=== PATIENT | female | born 1965 | race Two or more races ===

== ENCOUNTER 2019-06-15 09:23 | Inpatient (IN) | payer BC, MEDICARE ==
[~2019-06-15] VITALS: Ht 152.4 cm; Wt 60.5 kg
[~2019-06-15 09:23] MED LIST: CARV12.544 PO; LEVO150T10 PO; LISI40TA PO
[2019-06-15] MEDS ORDERED: MORPHINE SULFATE 4 MG/ML SYR/VIAL IV ONE (10:00)
[2019-06-15] MEDS ORDERED: ASPirin 81 mg TAB PO ONE (10:00)
[2019-06-15] MEDS ORDERED: ONDANSETRON HCL 4 MG/2 ML VIAL IV ONE (10:00)
[2019-06-15 10:06] LABS: Basophils # (auto) 0.1 10 ^3/uL (0-0.2); Basophils % (auto) 1.1 % (0.0-2.0); Eosinophils # (auto) 0.1 10 ^3/uL (0-0.8); Eosinophils % (auto) 0.7 % (0.0-7.0); Hematocrit 49.2 % (36.0-46.0); Lymphocytes # (auto) 1.2 10 ^3/uL (0.4-5.4); Lymphocytes % (auto) 15.2 % (10.0-50.0); Mean Corpuscular Hemoglobin 28.1 pg (28.0-32.0); Mean Corpuscular Hgb Conc. 32.5 g/dL (32.0-36.0); Mean Corpuscular Volume 86.2 fL (80.0-100.0); Monocytes # (auto) 0.5 10 ^3/uL (0-1.3); Monocytes % (auto) 5.8 % (0.0-12.0); Neutrophils # (auto) 6.1 10 ^3/uL (1.6-8.6); Neutrophils % (auto) 77.2 % (37.0-80.0); Nucleated Red Blood Cells % 0.2 %; Platelet Count (auto) 267 10^3/uL (140-450); Red Cell Distribution Width 14.2 % (11.8-14.3)
[2019-06-15 10:21] LABS: Albumin 3.9 g/dL (3.4-5.0); Anion Gap 6 (5-15); Blood Urea Nitrogen 9 mg/dL (7-18); Calcium 10.1 mg/dL (8.5-10.1); Carbon Dioxide 25 mmol/L (21-32); Chloride 110 mmol/L (98-107); Glucose 96 mg/dL (74-106); Potassium 3.9 mmol/L (3.5-5.1); Sodium 141 mmol/L (136-145)
[2019-06-15 10:26] LABS: Alanine Aminotransferase 23 U/L (13-56); Alkaline Phosphatase 103 U/L (45-117); Aspartate Aminotransferase 23 U/L (15-37); BUN/Creatinine Ratio 6.3; Bilirubin, Total 0.3 mg/dL (0.2-1.0); GFR African American 50 mL/min; GFR Non-African American 41 mL/min; Total Protein 8.4 g/dL (6.4-8.2)
[2019-06-15 10:41] LABS: Urine Bacteria NONE SEEN /hpf (None Seen); Urine Blood Negative /uL (Negative); Urine Specific Gravity 1.003 (1.001-1.035); Urine WBC <1 /hpf (0 - 5)
[2019-06-15] MEDS ORDERED: LISINOPRIL 10 MG TAB PO SCH (11:15)
[2019-06-15] MEDS ORDERED: ACETAMINOPHEN 500 MG TAB PO PRN (11:15)
[2019-06-15] MEDS ORDERED: METOPROLOL TARTRATE 25 MG TAB PO SCH (11:15)
[2019-06-15] MEDS: HYDROcodone-ACET 5/325MG TAB PO PRN (11:53)
[2019-06-15] MEDS: NITROGLYCERIN 0.4MG/HR TOPICAL PATCH TD SCH (11:55)
[2019-06-15] MEDS: MORPHINE SULF INJ 2 MG/ML SYRINGE 1ML IV PRN ×3 (12:57→20:38)
[2019-06-15] MEDS: ONDANSETRON HCL 4 MG/2 ML VIAL IV PRN ×2 (12:58→15:59)
[2019-06-15] MEDS: hydrALAZINE HCL 20 MG/ML VL IV PRN (12:58)
--- NOTE | 2019-06-15 13:50 | NUR ---
RECEIVED PATIENT TO THE FLOOR AWAKE ALERT AND ORIENTED. INSTRUCTED THE PATIENT ON THE PLAN OF CARE AND TO CALL NEEDED. BED LOCKED IN LOWEST POSITION WITH TWO SIDE RAILS UP AND CALL LIGHT IN REACH.
[2019-06-15] MEDS ORDERED: NICOTINE 7MG/24HR TOPICAL PATCH TD ONE (14:30)
[2019-06-15] MEDS ORDERED: RANOLAZINE ER 500 MG TAB PO ONE (14:30)
--- NOTE | 2019-06-15 14:50 | NUR ---
SPOKE TO JUSTINA COX AT NURSING STATION REGARDING PATIENT HAVING CHEST DISCOMFORT. PER JUSTINA SHE WILL ROUND ON PATIENT.
[2019-06-15] MEDS ORDERED: diphenhdrAMINE HCL 50 MG/1 ML VL IV ONE (16:45)
[2019-06-15] MEDS ORDERED: KETOROLAC TROMETH 30 MG/ML 1ML VIAL IV ONE (16:45)
[2019-06-15 16:51] VITALS: BP 110/67
--- NOTE | 2019-06-15 17:00 | NUR ---
PATIENT COMPLAINING OF ITCHY ON PALMS, BENADRYL GIVEN ORDERED.
--- NOTE | 2019-06-15 17:00 | NUR ---
DR RODRIGEZ ROUNDING ON PATIENT.
[2019-06-15 18:00] VITALS: BP 110/63
--- NOTE | 2019-06-15 19:30 | NUR ---
Opening Shift Note Assumed care of patient, awake and alert. No S/S of distress or SOB. POC discussed and questions answered. Patient requesting "something to help her relax" will call for orders. Bed is locked in lowest position with side rails up x2 for safety. Call light is within reach and patient encouraged to call for assistance PRN, will continue to monitor for changes Q1hr and PRN.
--- NOTE | 2019-06-15 20:40 | NUR ---
NEW ORDERS RECEIVED 0.5MG XANAX ORDERED. WILL CARRY OUT ORDER AND CONTINUE TO MONITOR.
[2019-06-15] MEDS ORDERED: ALPRAZolam 0.5 MG TAB PO ONE (20:45)
[2019-06-15 21:19] VITALS: BP 102/48
[2019-06-15] MEDS: ATORVASTATIN 20 MG TAB PO SCH (21:22)
[2019-06-15] MEDS: RANOLAZINE ER 500 MG TAB PO SCH (21:22)
[2019-06-15] MEDS: DOCUSATE SOD 100 MG CAP PO SCH (21:22)
[2019-06-15] MEDS: METOPROLOL TARTRATE 50 MG TAB PO SCH (21:23)
[2019-06-16] MEDS ORDERED: SODIUM CHLORIDE 0.9% 1,000 ML IV SCH (00:01)
[2019-06-16 05:32] VITALS: BP 103/61
[2019-06-16 06:18] LABS: Basophils # (auto) 0.1 10 ^3/uL (0-0.2); Basophils % (auto) 1.1 % (0.0-2.0); Eosinophils # (auto) 0.1 10 ^3/uL (0-0.8); Eosinophils % (auto) 1.3 % (0.0-7.0); Hematocrit 43.4 % (36.0-46.0); Hemoglobin 14.3 g/dL (12.2-16.2); Lymphocytes # (auto) 2.1 10 ^3/uL (0.4-5.4); Lymphocytes % (auto) 22.7 % (10.0-50.0); Mean Corpuscular Hemoglobin 28.4 pg (28.0-32.0); Mean Corpuscular Hgb Conc. 32.9 g/dL (32.0-36.0); Mean Corpuscular Volume 86.3 fL (80.0-100.0); Monocytes # (auto) 0.8 10 ^3/uL (0-1.3); Neutrophils % (auto) 65.9 % (37.0-80.0); Nucleated Red Blood Cells % 0.1 %; Platelet Count (auto) 212 10^3/uL (140-450); Red Blood Cells 5.03 10^6/uL (4.0-5.20); Red Cell Distribution Width 14.2 % (11.8-14.3); White Blood Cell 9.1 10^3/uL (4.4-10.8)
[2019-06-16 06:32] LABS: INR 1.01 (0.9-1.15); Partial Thromboplastin Time 27.7 sec (23.64-32.05)
[2019-06-16 06:38] LABS: BUN/Creatinine Ratio 11.4; Calcium 9.2 mg/dL (8.5-10.1); Potassium 4.5 mmol/L (3.5-5.1)
--- NOTE | 2019-06-16 07:10 | NUR ---
Opening Shift Note Assumed care of patient, resting in bed with eyes closed. No S/S of distress/SOB or pain. Bed is set in lowest locked position with side rails up x 2 for safety and call light is within reach, will continue to monitor for changes Q1hr and PRN.
[2019-06-16] MEDS ORDERED: IODIXANOL 320MG/ML 100ML BTL IV ONE (07:50)
[2019-06-16] MEDS: MORPHINE SULF INJ 2 MG/ML SYRINGE 1ML IV PRN ×2 (08:17→13:08)
--- NOTE | 2019-06-16 08:17 | NUR ---
Pain assessment Patient states pain is a level 10/10 on a scale of 1-10. Pain is located in the left shoulder and upper back region. Per MD orders, administered morphine 1 mg. Will continue to monitor patient.
[2019-06-16] MEDS ORDERED: IOHEXOL 350 MG/ML 100ML IJ ONE (08:24)
[2019-06-16] MEDS ORDERED: LIDOCAINE 2%HCL (LOCAL ANESTH.) INJ 20ML MDV ONE ×2 (08:25→12:03)
--- NOTE | 2019-06-16 08:28 | NUR ---
Patient off unit Taken down to label rewinder for procedure. IV flushed prior and is intact/patent. No distress noted upon departure. Care endorsed to CATHY Fowler.
[2019-06-16 08:30] VITALS: BP 145/88
--- NOTE | 2019-06-16 08:47 | NUR ---
Pain re-assessment Patient reports pain is a 5/10 on a scale of 1-10. States she is comfortable at this time.
[2019-06-16 09:00] VITALS: BP 117/85
[2019-06-16] MEDS: LISINOPRIL 20 MG TAB PO SCH (09:56)
[2019-06-16] MEDS: ASPirin-EC 81 mg tab PO SCH (09:56)
[2019-06-16] MEDS: RANOLAZINE ER 500 MG TAB PO SCH ×2 (09:56→21:43)
[2019-06-16] MEDS: DOCUSATE SOD 100 MG CAP PO SCH ×2 (09:57→21:42)
[2019-06-16] MEDS: METOPROLOL TARTRATE 50 MG TAB PO SCH ×2 (09:57→21:43)
[2019-06-16] MEDS: FAMOTIDINE 20 MG TAB PO SCH (09:57)
[2019-06-16] MEDS: NICOTINE 7MG/24HR TOPICAL PATCH TD SCH (10:01)
[2019-06-16] MEDS ORDERED: ANGIOMAX 250 MG VIAL IV ONE (12:02)
[2019-06-16] MEDS ORDERED: fentaNYL CITRATE 100 MCG/2 ML VL ONE (12:02)
[2019-06-16] MEDS ORDERED: SODIUM CHL 0.9% 0 ML ONE (12:03)
[2019-06-16] MEDS ORDERED: MIDAZOLAM HCL 1MG/1ML-2 ML VIAL ONE (12:03)
[2019-06-16] MEDS ORDERED: SODIUM CHLORIDE 0.9% 250 ML IV ONE (12:45)
[2019-06-16] MEDS: NITROGLYCERIN 0.4MG/HR TOPICAL PATCH TD SCH (12:59)
[2019-06-16] MEDS: SODIUM CHLORIDE 0.9% 1,000 ML IV SCH ×2 (13:12→21:44)
[2019-06-16] MEDS ORDERED: LEVOTHYROXINE SODIUM 50 MCG TAB PO ONE (13:45)
[2019-06-16 13:54] LABS: Cholesterol 244 mg/dL (< 200)
[2019-06-16 13:56] LABS: HDL Cholesterol 61 mg/dL (40-59); LDL Cholesterol 142 mg/dL (< 100); Triglycerides 271 mg/dL (< 150)
[2019-06-16] MEDS: HYDROcodone-ACET 5/325MG TAB PO PRN (15:17)
[2019-06-16 16:39] VITALS: BP 150/86
[2019-06-16] MEDS ORDERED: KETOROLAC TROMETH 15 mg/ml 1ML VL IV ONE (17:00)
[2019-06-16] MEDS ORDERED: diphenhdrAMINE HCL 50 MG/1 ML VL IM ONE (17:00)
[2019-06-16] MEDS ORDERED: KETOROLAC TROMETH 30 MG/ML 1ML VIAL IV ONE (17:45)
[2019-06-16] MEDS ORDERED: diphenhdrAMINE HCL 50 MG/1 ML VL IV ONE (17:45)
[2019-06-16] MEDS: ONDANSETRON HCL 4 MG/2 ML VIAL IV PRN (18:41)
--- NOTE | 2019-06-16 19:15 | NUR ---
Care endorsed to NOC RN.
--- NOTE | 2019-06-16 19:40 | NUR ---
Opening Shift Note Assumed care of patient, awake and alert. No S/S of distress/SOB or pain. Instructed on POC and to call for assist PRN. Bed in lowest locked position, call light within reach, side rails up x2, fall precautions in place. Will continue to monitor for changes Q1hr and PRN.
[2019-06-16] MEDS: MORPHINE SULFATE 4 MG/ML SYR/VIAL IV PRN (20:01)
[2019-06-16] MEDS: ATORVASTATIN 20 MG TAB PO SCH (21:42)
[2019-06-16 22:00] VITALS: BP 140/81
[2019-06-17] MEDS: MORPHINE SULFATE 4 MG/ML SYR/VIAL IV PRN ×3 (03:51→20:50)
[2019-06-17 05:00] VITALS: BP 160/75
[2019-06-17] MEDS: hydrALAZINE HCL 20 MG/ML VL IV PRN ×2 (05:17→18:29)
[2019-06-17 05:43] LABS: Basophils # (auto) 0.1 10 ^3/uL (0-0.2); Basophils % (auto) 1.1 % (0.0-2.0); Eosinophils # (auto) 0.1 10 ^3/uL (0-0.8); Eosinophils % (auto) 1.5 % (0.0-7.0); Hematocrit 40.2 % (36.0-46.0); Hemoglobin 13.4 g/dL (12.2-16.2); Lymphocytes # (auto) 1.4 10 ^3/uL (0.4-5.4); Lymphocytes % (auto) 20.2 % (10.0-50.0); Mean Corpuscular Hemoglobin 29.2 pg (28.0-32.0); Mean Corpuscular Hgb Conc. 33.4 g/dL (32.0-36.0); Mean Corpuscular Volume 87.5 fL (80.0-100.0); Monocytes # (auto) 0.7 10 ^3/uL (0-1.3); Monocytes % (auto) 10.2 % (0.0-12.0); Neutrophils # (auto) 4.6 10 ^3/uL (1.6-8.6); Platelet Count (auto) 187 10^3/uL (140-450); Red Blood Cells 4.59 10^6/uL (4.0-5.20); Red Cell Distribution Width 14.5 % (11.8-14.3); White Blood Cell 6.9 10^3/uL (4.4-10.8)
[2019-06-17 06:00] LABS: INR 0.96 (0.9-1.15); Partial Thromboplastin Time 27.5 sec (23.64-32.05)
[2019-06-17 06:14] LABS: BUN/Creatinine Ratio 13.5; Calcium 8.8 mg/dL (8.5-10.1); Potassium 4.6 mmol/L (3.5-5.1)
[2019-06-17] MEDS: LEVOTHYROXINE SODIUM 50 MCG TAB PO SCH (07:00)
[2019-06-17 08:30] VITALS: BP 152/88
[2019-06-17] MEDS: MORPHINE SULF INJ 2 MG/ML SYRINGE 1ML IV PRN ×2 (08:51→18:54)
--- NOTE | 2019-06-17 08:51 | NUR ---
CHEST PAIN PATIENT COMPLAINING OF CHEST PAIN/ HEAD PAIN. REFUSING NITRO SUBLINGUAL, ALREADY HAS NITRO PATCH TO RIGHT CHEST ON. REFUSING EKG AT THIS TIME, REQUESTING MORPHINE. MORPHINE 2MG IV GIVEN, PAIN SCALE OF 10/10. WILL CONTINUE TO MONITOR.
[2019-06-17] MEDS: SODIUM CHLORIDE 0.9% 1,000 ML IV SCH ×2 (09:30→20:00)
[2019-06-17] MEDS: RANOLAZINE ER 500 MG TAB PO SCH ×2 (09:57→21:35)
[2019-06-17] MEDS: FAMOTIDINE 20 MG TAB PO SCH (09:57)
[2019-06-17] MEDS: LISINOPRIL 20 MG TAB PO SCH (09:58)
[2019-06-17] MEDS: DOCUSATE SOD 100 MG CAP PO SCH ×2 (09:59→21:34)
[2019-06-17] MEDS: METOPROLOL TARTRATE 50 MG TAB PO SCH ×2 (09:59→21:35)
[2019-06-17] MEDS: ASPirin-EC 81 mg tab PO SCH ×2 (10:00→11:06)
[2019-06-17] MEDS: NICOTINE 7MG/24HR TOPICAL PATCH TD SCH (10:07)
[2019-06-17] MEDS: NITROGLYCERIN 0.4MG/HR TOPICAL PATCH TD SCH (10:08)
[2019-06-17 12:30] VITALS: BP 160/95
--- NOTE | 2019-06-17 14:25 | NUR ---
Nutrition Assessment Notes Please refer to link for full assessment notes. Est energy needs: 6855-9643 kcals (20-23 kcal/kgBW) Est protein needs: 50-63 gms/day (0.8-1.0 gm/kgBW) Will continue to monitor and reassess prn. Addendum: 06/17/19 at [address] Amended: Links added.
[2019-06-17 16:29] VITALS: BP 157/85
--- NOTE | 2019-06-17 18:54 | NUR ---
CHEST PAIN PATIENT COMPLAINING OF CHEST/ LOWER BACK PAIN 12/25. REFUSING NITRO SUBLINGUAL. NITRO PATCH ON. REFUSING EKG AT THIS TIME, REQUESTING TO HAVE MORPHINE. 2MG OF MORPHINE GIVEN IV. WILL CONTINUE TO MONITOR.
[2019-06-17] MEDS: NITROGLYCERIN 0.4 MG SL TAB SL PRN ×3 (19:28→19:39)
--- NOTE | 2019-06-17 19:30 | NUR ---
Opening Shift Note Assumed care of patient, awake and alert. Patient continues to complain of chest pain 10/10, will medicate as directed, see eMAR. Instructed on POC and to call for assist PRN. Bed in lowest locked position, call light within reach, side rails up x2. Will continue to monitor for changes Q1hr and PRN.
--- NOTE | 2019-06-17 20:00 | NUR ---
Chest pain Upon assessment, patient continue to complain of 10/10 chest pain radiating to back and left arm. Placed patient on NC 2L. Educated patient about nitro sublingual. Patient agreed to take medication. Nitro was given x3, see eMAR. Patient tolerated medication well. VS within normal limits. Patient states chest pain is tolerable and is decreased to 7/10. Per patient, would like to wait until pain medication is due. Will continue to monitor.
[2019-06-17] MEDS: ATORVASTATIN 20 MG TAB PO SCH (21:34)
[2019-06-17 21:56] VITALS: BP 152/81
[2019-06-18 05:00] VITALS: BP 150/77
[2019-06-18] MEDS: SODIUM CHLORIDE 0.9% 1,000 ML IV SCH ×2 (05:00→15:54)
[2019-06-18 05:50] LABS: Calcium 9.2 mg/dL (8.5-10.1); Potassium 4.5 mmol/L (3.5-5.1)
[2019-06-18 05:56] LABS: BUN/Creatinine Ratio 10.1; Bilirubin, Total 0.4 mg/dL (0.2-1.0); Total Protein 6.5 g/dL (6.4-8.2)
[2019-06-18] MEDS: LEVOTHYROXINE SODIUM 50 MCG TAB PO SCH (06:50)
--- NOTE | 2019-06-18 07:20 | NUR ---
Opening shift note Assumed care of patient. Patient A&Ox4, respirations even and non-labored with no s/s of distress. Patients current pain level 5/10. Patient stated that her pain was tolerable and felt much better than the day before. Discussed POC and lab technician procedure with patient who verbalized understanding. IV flushed, patent, and intact. NS at 100 mL. Bed lowered/locked with 2 side rails up. Call light within reach. Will continue to monitor.
[2019-06-18] MEDS ORDERED: LIDOCAINE 2%HCL (LOCAL ANESTH.) INJ 20ML MDV ONE (07:50)
[2019-06-18] MEDS ORDERED: IODIXANOL 320MG/ML 100ML BTL IV ONE ×2 (07:50→13:13)
--- NOTE | 2019-06-18 08:40 | NUR ---
Patient to greenhouse laborer.
[2019-06-18 09:00] VITALS: BP 175/90
[2019-06-18] MEDS: DOCUSATE SOD 100 MG CAP PO SCH ×2 (09:58→21:54)
[2019-06-18] MEDS: METOPROLOL TARTRATE 50 MG TAB PO SCH ×2 (10:00→21:53)
--- NOTE | 2019-06-18 10:00 | NUR ---
Pain/Patient returned from fence laborer Patient returned from fence laborer as procedure was postponed. Patient c/o 11/25 shoulder pain. Administered 4 mg of morphine per EMAR. Will continue to monitor.
[2019-06-18] MEDS: LISINOPRIL 20 MG TAB PO SCH (10:01)
[2019-06-18] MEDS: RANOLAZINE ER 500 MG TAB PO SCH ×2 (10:01→21:54)
[2019-06-18] MEDS: FAMOTIDINE 20 MG TAB PO SCH (10:02)
[2019-06-18] MEDS: NICOTINE 7MG/24HR TOPICAL PATCH TD SCH (10:03)
[2019-06-18] MEDS: NITROGLYCERIN 0.4MG/HR TOPICAL PATCH TD SCH (10:03)
[2019-06-18] MEDS: MORPHINE SULFATE 4 MG/ML SYR/VIAL IV PRN ×3 (10:04→23:01)
--- NOTE | 2019-06-18 10:30 | NUR ---
DOCTOR OKEEFE AT BEDSIDE.
--- NOTE | 2019-06-18 10:34 | NUR ---
Pain reassessed Patient resting with eyes closed, respirations even and non-labored with no s/s of distress. Will continue to monitor.
--- NOTE | 2019-06-18 12:26 | NUR ---
Patient to track repair laborer.
[2019-06-18] MEDS ORDERED: SODIUM CHL 0.9% 50 ML ONE (12:46)
[2019-06-18] MEDS ORDERED: fentaNYL CITRATE 100 MCG/2 ML VL ONE (12:46)
[2019-06-18] MEDS ORDERED: MIDAZOLAM HCL 1MG/1ML-2 ML VIAL ONE (12:46)
[2019-06-18] MEDS ORDERED: ANGIOMAX 250 MG VIAL IV ONE (12:46)
[2019-06-18] MEDS ORDERED: hydrALAZINE HCL 20 MG/ML VL ONE (13:16)
[2019-06-18] MEDS ORDERED: VERAPAMIL 2.5MG/ML INJ 2ML VIAL IV ONE (13:29)
[2019-06-18] MEDS ORDERED: TICAGRELOR 90 MG TAB ONE (13:50)
[2019-06-18] MEDS ORDERED: ASPirin 81 mg TAB ONE (13:51)
[2019-06-18] MEDS: MORPHINE SULF INJ 2 MG/ML SYRINGE 1ML IV PRN (14:28)
--- NOTE | 2019-06-18 14:50 | NUR ---
PATIENT BACK FROM CARTON INSPECTOR. VITALS STABLE. WILL LAY FLAT UNTIL 1545. PATIENT DENIES PAIN AT THIS TIME. DRESSING TO RIGHT GROIN C/D/I. WILL CONTINUE TO MONITOR.
[2019-06-18 16:00] VITALS: BP 140/74
--- NOTE | 2019-06-18 19:17 | NUR ---
PATIENT CARE ENDORSED TO NIGHT NURSE.
[2019-06-18 20:00] VITALS: BP 160/70
[2019-06-18] MEDS: HYDROcodone-ACET 5/325MG TAB PO PRN (20:09)
[2019-06-18] MEDS: ATORVASTATIN 20 MG TAB PO SCH (21:52)
[2019-06-18] MEDS: TICAGRELOR 90 MG TAB PO SCH (21:53)
[2019-06-18 22:00] VITALS: BP 160/70
[2019-06-19] MEDS: SODIUM CHLORIDE 0.9% 1,000 ML IV SCH ×3 (01:35→21:59)
--- NOTE | 2019-06-19 01:50 | NUR ---
CARE ENDORSED TO MAXI MORGAN.
--- NOTE | 2019-06-19 01:50 | NUR ---
Report given by angeles Carl, to continue pt. care.
[2019-06-19] MEDS: MORPHINE SULFATE 4 MG/ML SYR/VIAL IV PRN ×3 (04:57→18:47)
[2019-06-19 05:00] VITALS: BP 165/92
[2019-06-19] MEDS: LEVOTHYROXINE SODIUM 50 MCG TAB PO SCH (06:03)
--- NOTE | 2019-06-19 08:00 | NUR ---
Opening Shift Note Assumed care of patient, awake and alert, oriented x 4 and verbally responsive. Respiratory even and unlabored. No S/S of distress/SOB or pain. Skin is Instructed on POC and to call for assist PRN, will continue to monitor for changes Q1hr and PRN.
[2019-06-19 08:58] VITALS: BP 157/77
[2019-06-19] MEDS: LISINOPRIL 20 MG TAB PO SCH (09:47)
[2019-06-19] MEDS: RANOLAZINE ER 500 MG TAB PO SCH ×2 (09:47→21:59)
[2019-06-19] MEDS: FAMOTIDINE 20 MG TAB PO SCH (09:47)
[2019-06-19] MEDS: ASPirin-EC 81 mg tab PO SCH (09:47)
[2019-06-19] MEDS: DOCUSATE SOD 100 MG CAP PO SCH ×2 (09:47→22:02)
[2019-06-19] MEDS: TICAGRELOR 90 MG TAB PO SCH ×2 (09:47→21:59)
[2019-06-19] MEDS: METOPROLOL TARTRATE 50 MG TAB PO SCH ×2 (09:48→22:01)
[2019-06-19] MEDS: NITROGLYCERIN 0.4MG/HR TOPICAL PATCH TD SCH (09:49)
[2019-06-19] MEDS: NICOTINE 7MG/24HR TOPICAL PATCH TD SCH (09:49)
[2019-06-19 13:01] VITALS: BP 156/79
[2019-06-19 16:50] VITALS: BP 141/78
--- NOTE | 2019-06-19 19:10 | NUR ---
SHIFT OPENING NOTE: ASSUMED CARE OF PATIENT. PT IS SLEEPING WITH NO S/S OF DISTRESS, PAIN, OR SOB, RESPIRATIONS ARE EVEN AND UNLABORED. BED IS LOW, LOCKED, TWO SIDE RAILS RAISED, AND CALL MARIEE IS WITHIN REACH. INSTRUCTED ON POC AND TO CALL FOR ASSISTANCE, WILL CONTINUE TO MONITOR Q 1HR AND PRN.
[2019-06-19 20:00] VITALS: BP 128/68
[2019-06-19 21:53] VITALS: BP 128/68
[2019-06-19] MEDS: ATORVASTATIN 20 MG TAB PO SCH (22:02)
[2019-06-20] MEDS: MORPHINE SULFATE 4 MG/ML SYR/VIAL IV PRN ×2 (04:21→10:28)
[2019-06-20 05:05] VITALS: BP 141/75
[2019-06-20 06:14] LABS: Basophils # (auto) 0.1 10 ^3/uL (0-0.2); Basophils % (auto) 0.8 % (0.0-2.0); Eosinophils # (auto) 0.2 10 ^3/uL (0-0.8); Eosinophils % (auto) 3.3 % (0.0-7.0); Hematocrit 37.2 % (36.0-46.0); Hemoglobin 12.6 g/dL (12.2-16.2); Lymphocytes % (auto) 15.3 % (10.0-50.0); Mean Corpuscular Hemoglobin 29.2 pg (28.0-32.0); Mean Corpuscular Hgb Conc. 33.8 g/dL (32.0-36.0); Mean Corpuscular Volume 86.2 fL (80.0-100.0); Monocytes # (auto) 0.6 10 ^3/uL (0-1.3); Monocytes % (auto) 8.9 % (0.0-12.0); Neutrophils # (auto) 4.5 10 ^3/uL (1.6-8.6); Neutrophils % (auto) 71.7 % (37.0-80.0); Platelet Count (auto) 187 10^3/uL (140-450); Red Blood Cells 4.32 10^6/uL (4.0-5.20); Red Cell Distribution Width 14.2 % (11.8-14.3); White Blood Cell 6.3 10^3/uL (4.4-10.8)
[2019-06-20] MEDS: LEVOTHYROXINE SODIUM 50 MCG TAB PO SCH (06:16)
[2019-06-20 06:27] LABS: Calcium 9.3 mg/dL (8.5-10.1); Potassium 4.1 mmol/L (3.5-5.1)
[2019-06-20 06:30] LABS: BUN/Creatinine Ratio 11.2
[2019-06-20 08:56] VITALS: BP 148/92
[2019-06-20] MEDS: DOCUSATE SOD 100 MG CAP PO SCH (10:21)
[2019-06-20] MEDS: FAMOTIDINE 20 MG TAB PO SCH (10:21)
[2019-06-20] MEDS: ASPirin-EC 81 mg tab PO SCH (10:21)
[2019-06-20] MEDS: METOPROLOL TARTRATE 50 MG TAB PO SCH ×2 (10:21→10:28)
[2019-06-20] MEDS: RANOLAZINE ER 500 MG TAB PO SCH (10:21)
[2019-06-20] MEDS: TICAGRELOR 90 MG TAB PO SCH (10:21)
[2019-06-20] MEDS: LISINOPRIL 20 MG TAB PO SCH (10:22)
[2019-06-20] MEDS: NITROGLYCERIN 0.4MG/HR TOPICAL PATCH TD SCH (10:23)
[2019-06-20] MEDS: SODIUM CHLORIDE 0.9% 1,000 ML IV SCH (10:27)
[2019-06-20] MEDS: NICOTINE 7MG/24HR TOPICAL PATCH TD SCH (10:27)
[2019-06-20 10:53] VITALS: BP 148/92
[2019-06-20 12:32] VITALS: BP 181/87
--- NOTE | 2019-06-20 14:10 | NUR ---
Notify re BP 169/ 93 HR 69, received new order : clonidine 0.1 mg PO now and patient can go home , no need to recheck BP per dr. Neri.
[2019-06-20] MEDS ORDERED: cloNIDine HCL 0.1 MG TAB PO ONE (14:15)
--- NOTE | 2019-06-20 15:07 | NUR ---
Discharge instructions given as ordered. Encourage to follow up with PMD (Follow up with Dr. Rhodes # [phone] Address : [address], [address] , [place], [address] Follow up [address]. Courtney (Fireman) in 2 weeks Address: [address] [place] [address] . Follow up with women's activities adviser with Dr. Peterson in 2 weeks Address: [address] [place] [address] . Check blood test TSH in 1 week prior visit PCP) as instructed. All questions and concerns addressed. Patient verbalized understanding. Medication reconciliation form completed and copy given to patient. H IV removed with catheter intact, pressure dressing applied. Telemetry unit returned to ICU. Patient taken to vehicle via wheelchair with all personal belongings, accompanied by staff and family member. No distress noted at time of departure.
--- NOTE | 2019-06-20 17:40 | NUR ---
Allie Crisostomo # [phone] Neri will see her tomorrow at [facility] around 8 am , she will be there.
== END 2019-06-20 15:05 | disposition home or self-care (01) | DRG 246 ==
LOC: ER 09:23 → TELE 09:24 → TELE-WESTW 13:27
PROVIDERS: ADMIT Nurse Practitioner Acute Care; ATTEND Family Medicine
PROC: 027034Z Dilation of Coronary Artery, One Artery with Drug-eluting Intraluminal Device, Percutaneous Approach (ICD-10-PCS; principal; 2019-06-19)
PROC: 4A023N7 Measurement of Cardiac Sampling and Pressure, Left Heart, Percutaneous Approach (ICD-10-PCS; 2019-06-19)
PROC: B211YZZ Fluoroscopy of Multiple Coronary Arteries using Other Contrast (ICD-10-PCS; 2019-06-19)
PROC: B213YZZ Fluoroscopy of Multiple Coronary Artery Bypass Grafts using Other Contrast (ICD-10-PCS; 2019-06-19)
PROC: B218YZZ Fluoroscopy of Left Internal Mammary Bypass Graft using Other Contrast (ICD-10-PCS; 2019-06-19)
PROC: B215YZZ Fluoroscopy of Left Heart using Other Contrast (ICD-10-PCS; 2019-06-19)
DX: I25.110 Atherosclerotic heart disease of native coronary artery with unstable angina pectoris (principal); N17.0 Acute kidney failure with tubular necrosis; I13.0 Hypertensive heart and chronic kidney disease with heart failure and stage 1 through stage 4 chronic kidney disease, or unspecified chronic kidney disease; I16.9 Hypertensive crisis, unspecified; I50.32 Chronic diastolic (congestive) heart failure; J44.9 Chronic obstructive pulmonary disease, unspecified; E03.9 Hypothyroidism, unspecified; N18.3 Chronic kidney disease, stage 3 (moderate); E78.00 Pure hypercholesterolemia, unspecified; N26.1 Atrophy of kidney (terminal); F17.200 Nicotine dependence, unspecified, uncomplicated; Z71.6 Tobacco abuse counseling; Z88.0 Allergy status to penicillin; Z88.5 Allergy status to narcotic agent; Z79.899 Other long term (current) drug therapy; E78.5 Hyperlipidemia, unspecified
CPT/HCPCS: 36415; 71046; 76775; 80048; 80053; 80061; 81001; 82565; 83735; 84443; 84484; 85025; 85610; 85730; 86141; 92928; 93005; 93459; 96374; 96375; 96376; 99152; 99153; C1874; G0378; J1885; J2250; J2405; Q9967

== ENCOUNTER 2019-10-16 14:11 | Emergency (ER) | payer BC, MEDICARE ==
[~2019-10-16] VITALS: Ht 154.9 cm; Wt 54.9 kg
[2019-10-16] MEDS ORDERED: LORazepam 2MG/ML-1ML VIAL IV ONE (15:00)
[2019-10-16] MEDS ORDERED: ASPirin 81 mg TAB PO ONE (15:00)
[2019-10-16 15:20] LABS: Basophils # (auto) 0 10 ^3/uL (0-0.2); Basophils % (auto) 0.4 % (0.0-2.0); Eosinophils # (auto) 0 10 ^3/uL (0-0.8); Eosinophils % (auto) 0.4 % (0.0-7.0); Hematocrit 48.5 % (36.0-46.0); Hemoglobin 16.1 g/dL (12.2-16.2); Lymphocytes # (auto) 1.5 10 ^3/uL (0.4-5.4); Mean Corpuscular Hgb Conc. 33.3 g/dL (32.0-36.0); Mean Corpuscular Volume 87.2 fL (80.0-100.0); Monocytes # (auto) 0.8 10 ^3/uL (0-1.3); Monocytes % (auto) 8.7 % (0.0-12.0); Neutrophils # (auto) 7.1 10 ^3/uL (1.6-8.6); Neutrophils % (auto) 74.5 % (37.0-80.0); Nucleated Red Blood Cells % 0.1 %; Platelet Count (auto) 263 10^3/uL (140-450); Red Blood Cells 5.56 10^6/uL (4.0-5.20); Red Cell Distribution Width 14.7 % (11.8-14.3); White Blood Cell 9.5 10^3/uL (4.4-10.8)
[2019-10-16] MEDS ORDERED: MORPHINE SULF INJ 2 MG/ML SYRINGE 1ML IV ONE (15:30)
[2019-10-16] MEDS ORDERED: ONDANSETRON HCL 4 MG/2 ML VIAL IV ONE (15:30)
[2019-10-16 15:42] LABS: Albumin 3.7 g/dL (3.4-5.0); Anion Gap 9 (5-15); Blood Urea Nitrogen 13 mg/dL (7-18); Calcium 10.2 mg/dL (8.5-10.1); Carbon Dioxide 19 mmol/L (21-32); Chloride 114 mmol/L (98-107); Glucose 78 mg/dL (74-106); Potassium 3.8 mmol/L (3.5-5.1); Sodium 142 mmol/L (136-145)
[2019-10-16 15:45] LABS: Alanine Aminotransferase 27 U/L (13-56); Aspartate Aminotransferase 21 U/L (15-37); BUN/Creatinine Ratio 9.1; GFR African American 49 mL/min; GFR Non-African American 41 mL/min
[2019-10-16 15:52] LABS: Alkaline Phosphatase 117 U/L (45-117); Bilirubin, Total 0.5 mg/dL (0.2-1.0); Total Protein 8.2 g/dL (6.4-8.2)
[2019-10-16 15:57] LABS: INR 1.01 (0.9-1.15); Partial Thromboplastin Time 26.6 sec (23.0-31.2)
[2019-10-16 16:16] LABS: Urine Bacteria FEW /hpf (None Seen); Urine Blood Negative /uL (Negative); Urine Specific Gravity 1.022 (1.001-1.035); Urine WBC 2 /hpf (0 - 5)
[2019-10-16] MEDS ORDERED: cefTRIAXone 1GM/50ML D5W 50 ML IV ONE (17:30)
[2019-10-16] MEDS ORDERED: NITROFURANTOIN 100 mg CAP PO ONE (17:45)
[2019-10-16] MEDS ORDERED: ACETAMINOPHEN 500 MG TAB PO ONE (17:45)
[2019-10-16] MEDS ORDERED: HYDROcodone-ACET 10/325MG TAB PO ONE (18:30)
[2019-10-16 18:49] VITALS: BP 159/99
== END 2019-10-16 19:10 | disposition home or self-care (01) ==
LOC: ER 14:11 → EDBD 14:11 → ER 19:10
DX: I11.0 Hypertensive heart disease with heart failure (principal); I50.9 Heart failure, unspecified; N39.0 Urinary tract infection, site not specified; F41.9 Anxiety disorder, unspecified; R07.89 Other chest pain; I25.10 Atherosclerotic heart disease of native coronary artery without angina pectoris; F17.210 Nicotine dependence, cigarettes, uncomplicated; Z88.6 Allergy status to analgesic agent; Z88.8 Allergy status to other drugs, medicaments and biological substances
CPT/HCPCS: 36415; 70450; 71045; 80053; 81001; 83880; 84484; 85025; 85610; 85730; 93005; 96374; 96375; 99285; J2060; J2270; J2405; J7030

== ENCOUNTER 2021-01-01 15:22 | Emergency (ER) | payer SELFPAY ==
[~2021-01-01] VITALS: Ht 154.9 cm; Wt 52.2 kg
[~2021-01-01 15:22] MED LIST changes: -LISI40TA PO; +LISI40TA11 PO
[2021-01-01 15:59] LABS: Urine Bacteria FEW /hpf (None Seen); Urine Blood Negative /uL (Negative); Urine Specific Gravity 1.005 (1.001-1.035); Urine WBC 1 /hpf (0 - 5)
[2021-01-01] MEDS ORDERED: SODIUM CHLORIDE 0.9% 500 ML IVB ONE (16:00)
[2021-01-01] MEDS ORDERED: ONDANSETRON HCL 4 MG/2 ML VIAL IV ONE (16:00)
[2021-01-01] MEDS ORDERED: cloNIDine HCL 0.1 MG TAB PO ONE (16:30)
[2021-01-01 16:32] LABS: Basophils # (auto) 0.1 10 ^3/uL (0-0.2); Basophils % (auto) 1.3 % (0.0-2.0); Eosinophils # (auto) 0.1 10 ^3/uL (0-0.8); Eosinophils % (auto) 1.3 % (0.0-7.0); Hematocrit 40.5 % (36.0-46.0); Hemoglobin 13.3 g/dL (12.2-16.2); Lymphocytes % (auto) 24.2 % (10.0-50.0); Mean Corpuscular Hemoglobin 31.2 pg (28.0-32.0); Mean Corpuscular Hgb Conc. 32.7 g/dL (32.0-36.0); Mean Corpuscular Volume 95.4 fL (80.0-100.0); Monocytes # (auto) 0.4 10 ^3/uL (0-1.3); Monocytes % (auto) 8.9 % (0.0-12.0); Neutrophils # (auto) 2.7 10 ^3/uL (1.6-8.6); Neutrophils % (auto) 64.3 % (37.0-80.0); Nucleated Red Blood Cells % 0.1 %; Red Blood Cells 4.25 10^6/uL (4.0-5.20); Red Cell Distribution Width 15.2 % (11.8-14.3); White Blood Cell 4.2 10^3/uL (4.4-10.8)
[2021-01-01 16:50] LABS: Albumin 3.8 g/dL (3.4-5.0); BUN/Creatinine Ratio 10.1; Calcium 9.2 mg/dL (8.5-10.1); Potassium 3.7 mmol/L (3.5-5.1)
[2021-01-01 16:53] LABS: Bilirubin, Total 0.6 mg/dL (0.2-1.0); Total Protein 7.7 g/dL (6.4-8.2)
[2021-01-01 18:33] VITALS: BP 175/104
[2021-01-01] MEDS ORDERED: HYDROcodone-ACET 10/325MG TAB PO ONE (19:00)
== END 2021-01-01 20:45 | disposition home or self-care (01) ==
LOC: ER 15:22
DX: I16.0 Hypertensive urgency (principal); T50.B95A Adverse effect of other viral vaccines, initial encounter; I25.10 Atherosclerotic heart disease of native coronary artery without angina pectoris; I10 Essential (primary) hypertension; I25.2 Old myocardial infarction; F17.210 Nicotine dependence, cigarettes, uncomplicated; Z95.1 Presence of aortocoronary bypass graft; Z98.890 Other specified postprocedural states; Z20.822 Contact with and (suspected) exposure to COVID-19; Z88.6 Allergy status to analgesic agent; Z88.0 Allergy status to penicillin; Z79.899 Other long term (current) drug therapy; Y92.89 Other specified places as the place of occurrence of the external cause
CPT/HCPCS: 36415; 80053; 81001; 85025; 87426; 96374; 99283; J2405

== ENCOUNTER 2021-05-11 13:55 | Inpatient (IN) | payer OTHER, MEDICARE ==
[~2021-05-11] VITALS: Ht 154.9 cm; Wt 56.6 kg
[2021-05-11] VITALS (24 sets, daily range): BP systolic 73–119; BP diastolic 41–83
[2021-05-11] MEDS ORDERED: HEPARIN SODIUM (PORCINE) 5000 UNITS/ML 1ML VIAL ONE (14:26)
[2021-05-11] MEDS ORDERED: HEPARIN SODIUM (PORCINE) 5000 UNITS/ML 1ML VIAL IV ONE (14:26)
[2021-05-11] MEDS ORDERED: ONDANSETRON HCL 4 MG/2 ML VIAL ONE (14:28)
[2021-05-11] MEDS ORDERED: MORPHINE SULFATE INJECTION 2 MG/ML SYRG ONE (14:28)
[2021-05-11] MEDS ORDERED: MORPHINE SULFATE INJECTION 2 MG/ML SYRG IV ONE (14:30)
[2021-05-11] MEDS ORDERED: ONDANSETRON HCL 4 MG/2 ML VIAL IV ONE (14:30)
[2021-05-11 14:43] LABS: Basophils # (auto) 0.1 10 ^3/uL (0-0.2); Eosinophils # (auto) 0.1 10 ^3/uL (0-0.8); Eosinophils % (auto) 1.3 % (0.0-7.0); Hematocrit 38.6 % (36.0-46.0); Hemoglobin 12.6 g/dL (12.2-16.2); Lymphocytes # (auto) 1.3 10 ^3/uL (0.4-5.4); Lymphocytes % (auto) 19.6 % (10.0-50.0); Mean Corpuscular Hemoglobin 29.5 pg (28.0-32.0); Mean Corpuscular Hgb Conc. 32.7 g/dL (32.0-36.0); Mean Corpuscular Volume 90.4 fL (80.0-100.0); Monocytes # (auto) 0.6 10 ^3/uL (0-1.3); Neutrophils # (auto) 4.4 10 ^3/uL (1.6-8.6); Neutrophils % (auto) 68.1 % (37.0-80.0); Nucleated Red Blood Cells % 0.1 %; Red Blood Cells 4.27 10^6/uL (4.0-5.20); Red Cell Distribution Width 14.2 % (11.8-14.3); White Blood Cell 6.4 10^3/uL (4.4-10.8)
[2021-05-11] MEDS ORDERED: ANGIOMAX 250 MG VIAL IV ONE (14:52)
[2021-05-11] MEDS ORDERED: fentaNYL CITRATE 100 MCG/2 ML VL ONE ×2 (14:52→15:29)
[2021-05-11 14:53] LABS: Albumin 3.9 g/dL (3.4-5.0); Calcium 10.1 mg/dL (8.5-10.1); Potassium 4.3 mmol/L (3.5-5.1)
[2021-05-11] MEDS ORDERED: MIDAZOLAM HCL 2MG/2ML 2ml VIAL (1mg/ml) ONE ×2 (14:53→15:29)
[2021-05-11] MEDS ORDERED: IODIXANOL 320MG/ML 100ML BTL IV ONE ×2 (14:53→15:32)
[2021-05-11] MEDS ORDERED: SODIUM CHL 0.9% 50 ML ONE (14:53)
[2021-05-11] MEDS ORDERED: LIDOCAINE 2%HCL (LOCAL ANESTH.) INJ 20ML MDV ONE (14:53)
[2021-05-11 14:58] LABS: BUN/Creatinine Ratio 14.8; Bilirubin, Total 0.5 mg/dL (0.2-1.0)
[2021-05-11] MEDS ORDERED: MORPHINE SULFATE INJECTION 2 MG/ML SYRG IV PRN ×2 (15:00→16:15)
[2021-05-11] MEDS ORDERED: NITROGLYCERIN 0.4 MG SL TAB SL PRN ×2 (15:00→16:15)
[2021-05-11] MEDS ORDERED: hydrALAZINE HCL 20 MG/ML VL ONE (15:37)
[2021-05-11] MEDS ORDERED: METOPROLOL TARTRATE 1MG/1ML-5ML VIAL IV ONE (15:46)
[2021-05-11] MEDS ORDERED: NITROGLYCERIN 50MG/250ML 250 ML IV ONE ×2 (15:55→16:00)
[2021-05-11] MEDS: METOPROLOL SUCCINATE XL 50 MG TAB PO SCH (16:30)
[2021-05-11] MEDS ORDERED: ATORVASTATIN 20 MG TAB PO SCH ×2 (16:33→22:00)
[2021-05-11] MEDS: HYDROmorphone HCL 2 MG/ML VL IV PRN ×2 (17:05→22:35)
[2021-05-11] MEDS: SODIUM CHLORIDE 0.9% 1,000 ML IV SCH (18:00)
[2021-05-11] MEDS: ATORVASTATIN 20 MG TAB PO SCH (21:49)
[2021-05-11] MEDS: TICAGRELOR 90 MG TAB PO SCH (21:49)
[2021-05-12] VITALS (49 sets, daily range): BP systolic 85–164; BP diastolic 51–94
[2021-05-12] MEDS: HYDROmorphone HCL 2 MG/ML VL IV PRN ×4 (01:44→20:11)
[2021-05-12 03:48] LABS: Basophils # (auto) 0.1 10 ^3/uL (0-0.2); Basophils % (auto) 0.8 % (0.0-2.0); Eosinophils # (auto) 0 10 ^3/uL (0-0.8); Eosinophils % (auto) 0.6 % (0.0-7.0); Hematocrit 31.9 % (36.0-46.0); Hemoglobin 10.8 g/dL (12.2-16.2); Lymphocytes # (auto) 1.1 10 ^3/uL (0.4-5.4); Lymphocytes % (auto) 15.4 % (10.0-50.0); Mean Corpuscular Hemoglobin 30.1 pg (28.0-32.0); Mean Corpuscular Hgb Conc. 33.9 g/dL (32.0-36.0); Mean Corpuscular Volume 88.8 fL (80.0-100.0); Monocytes # (auto) 0.7 10 ^3/uL (0-1.3); Monocytes % (auto) 9.7 % (0.0-12.0); Neutrophils # (auto) 5.2 10 ^3/uL (1.6-8.6); Neutrophils % (auto) 73.5 % (37.0-80.0); Red Blood Cells 3.59 10^6/uL (4.0-5.20); Red Cell Distribution Width 14.1 % (11.8-14.3); White Blood Cell 7.1 10^3/uL (4.4-10.8)
[2021-05-12 04:17] LABS: Magnesium 1.9 mg/dL (1.6-2.6); Potassium 4.1 mmol/L (3.5-5.1)
[2021-05-12 04:20] LABS: Bilirubin, Total 0.7 mg/dL (0.2-1.0); Total Protein 6.2 g/dL (6.4-8.2)
[2021-05-12] MEDS: ACETYLCYSTEINE ORAL for CIN 20%(200MG/ML) 4ML PO SCH ×3 (10:00→21:48)
[2021-05-12] MEDS: METOPROLOL SUCCINATE XL 50 MG TAB PO SCH (10:00)
[2021-05-12] MEDS: TICAGRELOR 90 MG TAB PO SCH ×2 (10:39→21:47)
[2021-05-12] MEDS: SODIUM CHLORIDE 0.9% 1,000 ML IV SCH (10:39)
[2021-05-12] MEDS: ASPirin 81 mg TAB PO SCH (10:39)
[2021-05-12] MEDS ORDERED: KETOROLAC TROMETH 30 MG/ML 1ML VIAL IV ONE (11:00)
[2021-05-12] MEDS ORDERED: NITROGLYCERIN 0.2MG/HR TOPICAL PATCH TD ONE (11:00)
[2021-05-12] MEDS ORDERED: RANOLAZINE ER 500 MG TAB PO ONE (11:00)
[2021-05-12] MEDS ORDERED: MAGNESIUM OXIDE 400 MG TAB PO ONE (11:00)
[2021-05-12] MEDS ORDERED: ISOSORBIDE MONONITRATE ER 60 MG TAB PO ONE (11:15)
[2021-05-12] MEDS ORDERED: dilTIAZem HCL 180MG ER CAP PO ONE (11:15)
[2021-05-12 16:10] LABS: Free T4 (Free Thyroxine) 1.19 ng/dL (0.89-1.76)
[2021-05-12 16:11] LABS: Free T3 2.68 pg/mL (2.3-4.2)
[2021-05-12] MEDS: ATORVASTATIN 20 MG TAB PO SCH (21:48)
[2021-05-12] MEDS: MAGNESIUM OXIDE 400 MG TAB PO SCH (21:48)
[2021-05-12] MEDS: RANOLAZINE ER 500 MG TAB PO SCH (21:49)
[2021-05-12] MEDS: ALPRAZolam 0.25 MG TAB PO PRN (21:49)
[2021-05-12] MEDS: ISOSORBIDE MONONITRATE ER 60 MG TAB PO SCH (22:00)
[2021-05-13] MEDS: SODIUM CHLORIDE 0.9% 1,000 ML IV SCH ×3 (03:23→13:39)
[2021-05-13 05:00] VITALS: BP 125/90
[2021-05-13] MEDS: HYDROmorphone HCL 2 MG/ML VL IV PRN ×4 (05:28→22:05)
[2021-05-13 06:01] LABS: Basophils # (auto) 0.1 10 ^3/uL (0-0.2); Basophils % (auto) 1.3 % (0.0-2.0); Eosinophils # (auto) 0.1 10 ^3/uL (0-0.8); Eosinophils % (auto) 1.8 % (0.0-7.0); Hematocrit 32.9 % (36.0-46.0); Hemoglobin 11.1 g/dL (12.2-16.2); Lymphocytes # (auto) 1.3 10 ^3/uL (0.4-5.4); Lymphocytes % (auto) 26.8 % (10.0-50.0); Mean Corpuscular Hgb Conc. 33.6 g/dL (32.0-36.0); Mean Corpuscular Volume 92.3 fL (80.0-100.0); Monocytes # (auto) 0.6 10 ^3/uL (0-1.3); Monocytes % (auto) 13.5 % (0.0-12.0); Neutrophils # (auto) 2.7 10 ^3/uL (1.6-8.6); Neutrophils % (auto) 56.6 % (37.0-80.0); Nucleated Red Blood Cells % 0.1 %; Red Blood Cells 3.57 10^6/uL (4.0-5.20); Red Cell Distribution Width 14.4 % (11.8-14.3); White Blood Cell 4.7 10^3/uL (4.4-10.8)
[2021-05-13 06:21] LABS: Calcium 9.8 mg/dL (8.5-10.1); Potassium 4.4 mmol/L (3.5-5.1)
[2021-05-13 06:30] LABS: BUN/Creatinine Ratio 10.8
[2021-05-13 08:00] VITALS: BP 141/73
[2021-05-13] MEDS: ASPirin 81 mg TAB PO SCH (09:44)
[2021-05-13] MEDS: TICAGRELOR 90 MG TAB PO SCH ×2 (09:45→21:41)
[2021-05-13] MEDS: dilTIAZem HCL 180MG ER CAP PO SCH (09:46)
[2021-05-13] MEDS: ISOSORBIDE MONONITRATE ER 60 MG TAB PO SCH ×2 (09:47→21:41)
[2021-05-13] MEDS: MAGNESIUM OXIDE 400 MG TAB PO SCH ×2 (09:47→21:41)
[2021-05-13] MEDS: ACETYLCYSTEINE ORAL for CIN 20%(200MG/ML) 4ML PO SCH (09:47)
[2021-05-13] MEDS: RANOLAZINE ER 500 MG TAB PO SCH ×2 (09:48→21:41)
[2021-05-13] MEDS ORDERED: NITROGLYCERIN 0.2MG/HR TOPICAL PATCH TD SCH (10:00)
[2021-05-13 12:00] VITALS: BP 126/79
[2021-05-13] MEDS ORDERED: NITROGLYCERIN 0.4MG/HR TOPICAL PATCH TD ONE (12:00)
[2021-05-13] MEDS: HYDROcodone-ACET 5/325MG TAB PO PRN ×2 (12:40→18:53)
[2021-05-13 16:00] VITALS: BP 141/76
[2021-05-13] MEDS: ATORVASTATIN 20 MG TAB PO SCH (21:41)
[2021-05-13 22:00] VITALS: BP 137/84
[2021-05-14] MEDS: ALPRAZolam 0.25 MG TAB PO PRN ×2 (02:04→21:04)
[2021-05-14 05:00] VITALS: BP 150/82
[2021-05-14] MEDS: HYDROmorphone HCL 2 MG/ML VL IV PRN ×3 (05:01→15:39)
[2021-05-14 05:37] LABS: Basophils # (auto) 0 10 ^3/uL (0-0.2); Basophils % (auto) 0.7 % (0.0-2.0); Eosinophils # (auto) 0.1 10 ^3/uL (0-0.8); Eosinophils % (auto) 1.7 % (0.0-7.0); Hematocrit 30.8 % (36.0-46.0); Hemoglobin 10.3 g/dL (12.2-16.2); Lymphocytes # (auto) 1.1 10 ^3/uL (0.4-5.4); Lymphocytes % (auto) 25.4 % (10.0-50.0); Mean Corpuscular Hemoglobin 29.8 pg (28.0-32.0); Mean Corpuscular Hgb Conc. 33.6 g/dL (32.0-36.0); Mean Corpuscular Volume 88.9 fL (80.0-100.0); Monocytes # (auto) 0.5 10 ^3/uL (0-1.3); Monocytes % (auto) 11.2 % (0.0-12.0); Neutrophils # (auto) 2.7 10 ^3/uL (1.6-8.6); Nucleated Red Blood Cells % 0.1 %; Red Blood Cells 3.47 10^6/uL (4.0-5.20); Red Cell Distribution Width 13.9 % (11.8-14.3); White Blood Cell 4.5 10^3/uL (4.4-10.8)
[2021-05-14 05:55] LABS: BUN/Creatinine Ratio 11.2; Calcium 9.7 mg/dL (8.5-10.1); Magnesium 2.6 mg/dL (1.6-2.6); Potassium 4.7 mmol/L (3.5-5.1)
[2021-05-14 09:00] VITALS: BP 111/73
[2021-05-14] MEDS: TICAGRELOR 90 MG TAB PO SCH ×2 (09:51→21:03)
[2021-05-14] MEDS: ASPirin 81 mg TAB PO SCH (09:51)
[2021-05-14] MEDS: dilTIAZem HCL 180MG ER CAP PO SCH (09:52)
[2021-05-14] MEDS: ISOSORBIDE MONONITRATE ER 60 MG TAB PO SCH ×2 (09:52→21:03)
[2021-05-14] MEDS: MAGNESIUM OXIDE 400 MG TAB PO SCH ×2 (09:53→21:03)
[2021-05-14] MEDS: RANOLAZINE ER 500 MG TAB PO SCH ×2 (09:53→21:04)
[2021-05-14] MEDS: NITROGLYCERIN 0.4MG/HR TOPICAL PATCH TD SCH (09:54)
[2021-05-14] MEDS: HYDROcodone-ACET 5/325MG TAB PO PRN ×2 (12:34→21:04)
[2021-05-14] MEDS: SODIUM CHLORIDE 0.9% 1,000 ML IV SCH ×2 (12:34→23:33)
[2021-05-14 13:00] VITALS: BP 114/69
[2021-05-14 17:00] VITALS: BP 138/89
[2021-05-14 17:15] VITALS: BP 138/89
[2021-05-14] MEDS: ATORVASTATIN 20 MG TAB PO SCH (21:03)
[2021-05-14 22:00] VITALS: BP 138/89
[2021-05-15] MEDS: HYDROmorphone HCL 2 MG/ML VL IV PRN ×2 (00:05→09:20)
[2021-05-15 05:00] VITALS: BP 112/69
[2021-05-15 08:00] VITALS: BP 146/73
[2021-05-15] MEDS: ASPirin 81 mg TAB PO SCH (11:20)
[2021-05-15] MEDS: MAGNESIUM OXIDE 400 MG TAB PO SCH (11:20)
[2021-05-15] MEDS: ISOSORBIDE MONONITRATE ER 60 MG TAB PO SCH (11:20)
[2021-05-15] MEDS: dilTIAZem HCL 180MG ER CAP PO SCH (11:21)
[2021-05-15] MEDS: RANOLAZINE ER 500 MG TAB PO SCH (11:22)
[2021-05-15] MEDS: NITROGLYCERIN 0.4MG/HR TOPICAL PATCH TD SCH (11:26)
[2021-05-15 12:30] VITALS: BP 158/83
[2021-05-15] MEDS: TICAGRELOR 90 MG TAB PO SCH (12:53)
[2021-05-15] MEDS: HYDROcodone-ACET 5/325MG TAB PO PRN (12:54)
[2021-05-15] MEDS ORDERED: TICA90TA PO (13:29)
[2021-05-15] MEDS ORDERED: MAGN241.4 PO (13:29)
[2021-05-15] MEDS ORDERED: ISO60SRT PO (13:29)
[2021-05-15] MEDS ORDERED: ASPI1TAB20 PO (13:29)
[2021-05-15] MEDS ORDERED: DILT-102 PO (13:29)
[2021-05-15] MEDS ORDERED: RANO1000 PO (13:29)
[2021-05-15] MEDS ORDERED: NITR0.4S29 SL (13:29)
[2021-05-15] MEDS ORDERED: ALPR0.25 PO (13:34)
[2021-05-15] MEDS ORDERED: HYDR-4902 PO (13:34)
[2021-05-15 16:00] VITALS: BP 146/86
== END 2021-05-15 16:50 | disposition home or self-care (01) | DRG 281 ==
LOC: ER 13:55 → EDBD 13:55 → ICU WEST 15:18 → TELE-EAST 05-12 13:34
PROVIDERS: ADMIT Internal Medicine; ATTEND Internal Medicine
PROC: 4A023N7 Measurement of Cardiac Sampling and Pressure, Left Heart, Percutaneous Approach (ICD-10-PCS; principal; 2021-05-11)
PROC: B211YZZ Fluoroscopy of Multiple Coronary Arteries using Other Contrast (ICD-10-PCS; 2021-05-11)
PROC: B215YZZ Fluoroscopy of Left Heart using Other Contrast (ICD-10-PCS; 2021-05-11)
PROC: B218YZZ Fluoroscopy of Left Internal Mammary Bypass Graft using Other Contrast (ICD-10-PCS; 2021-05-11)
PROC: B213YZZ Fluoroscopy of Multiple Coronary Artery Bypass Grafts using Other Contrast (ICD-10-PCS; 2021-05-11)
DX: I21.3 ST elevation (STEMI) myocardial infarction of unspecified site (principal); I50.42 Chronic combined systolic (congestive) and diastolic (congestive) heart failure; I13.0 Hypertensive heart and chronic kidney disease with heart failure and stage 1 through stage 4 chronic kidney disease, or unspecified chronic kidney disease; I25.10 Atherosclerotic heart disease of native coronary artery without angina pectoris; E07.9 Disorder of thyroid, unspecified; E03.9 Hypothyroidism, unspecified; E78.5 Hyperlipidemia, unspecified; F41.9 Anxiety disorder, unspecified; Z20.822 Contact with and (suspected) exposure to COVID-19; N18.30 Chronic kidney disease, stage 3 unspecified; I25.5 Ischemic cardiomyopathy; Z95.1 Presence of aortocoronary bypass graft; Z88.0 Allergy status to penicillin
CPT/HCPCS: 36415; 71045; 80048; 80053; 80061; 83036; 83735; 83880; 84439; 84443; 84481; 84484; 84702; 85025; 87426; 93005; 93306; 93459; 96374; 96375; 99152; 99153; A4565; C1887; G0378; J1885; J2250; J2405; Q9967

== ENCOUNTER 2021-05-29 21:01 | Inpatient (IN) | payer OTHER, MEDICARE ==
[~2021-05-29] VITALS: Ht 154.9 cm; Wt 50.0 kg
[~2021-05-29 21:01] MED LIST changes: +ALPR0.25 PO; +ASPI1TAB20 PO; +DILT-102 PO; +HYDR-4902 PO; +ISO60SRT PO; +MAGN241.4 PO; +NITR0.4S29 SL; +RANO1000 PO; +TICA90TA PO
[2021-05-29 21:28] LABS: Hematocrit 31.7 % (36.0-46.0); Hemoglobin 10.6 g/dL (12.2-16.2); Mean Corpuscular Hemoglobin 29.5 pg (28.0-32.0); Mean Corpuscular Hgb Conc. 33.5 g/dL (32.0-36.0); Mean Corpuscular Volume 88.2 fL (80.0-100.0); White Blood Cell 24.6 10^3/uL (4.4-10.8)
[2021-05-29] MEDS ORDERED: fentaNYL CITRATE 100 MCG/2 ML VL IV ONE (21:30)
[2021-05-29 21:31] LABS: Basophils % (manual) 0 (0.0-2.0); Blast Cells 0; Eosinophils % (manual) 0 (0-7); Metamyelocytes % 0; Myelocytes % 0; Promyelocytes % 0; Reactive Lymphocytes 0
[2021-05-29 21:42] LABS: INR 0.98 (0.9-1.15); Partial Thromboplastin Time 21.7 sec (23.6-33.0)
[2021-05-29 21:45] LABS: Albumin 3.4 g/dL (3.4-5.0); BUN/Creatinine Ratio 18.9; Calcium 9.4 mg/dL (8.5-10.1); Potassium 4.6 mmol/L (3.5-5.1)
[2021-05-29 21:50] LABS: Bilirubin, Total 0.3 mg/dL (0.2-1.0); Total Protein 6.9 g/dL (6.4-8.2)
[2021-05-29 22:03] LABS: Band Neutrophils % (manual) 4; Lymphocytes % (manual) 1 (10.0-50.0); Monocytes % (manual) 3 (0-12)
[2021-05-29] MEDS ORDERED: NITROGLYCERIN 0.4 MG SL TAB SL ONE ×2 (22:36→22:45)
[2021-05-30] VITALS (53 sets, daily range): BP systolic 92–184; BP diastolic 49–110
[2021-05-30] MEDS ORDERED: ACETAMINOPHEN 325 MG TAB PO PRN (01:00)
[2021-05-30] MEDS ORDERED: NITROGLYCERIN 0.4 MG SL TAB SL PRN (01:00)
[2021-05-30] MEDS ORDERED: TEMAZEPAM 15 MG CAP PO PRN (01:00)
[2021-05-30] MEDS ORDERED: ENOXAPARIN SOD 60 MG/0.6 ML SYRINGE SC ONE (02:30)
[2021-05-30] MEDS: LEVOTHYROXINE SODIUM 50 MCG TAB PO SCH (07:00)
[2021-05-30] MEDS ORDERED: MORPHINE SULFATE 4 MG/ML SYR/VIAL ONE (07:38)
[2021-05-30] MEDS: MORPHINE SULFATE INJECTION 2 MG/ML SYRG IV PRN ×2 (07:43→09:55)
[2021-05-30] MEDS: ONDANSETRON HCL 4 MG/2 ML VIAL IV PRN ×2 (07:44→21:25)
[2021-05-30] MEDS ORDERED: MORPHINE SULFATE INJECTION 2 MG/ML SYRG IV ONE (08:00)
[2021-05-30] MEDS: NITROGLYCERIN 50MG/250ML 250 ML IV SCH (09:13)
[2021-05-30] MEDS: RANOLAZINE ER 500 MG TAB PO SCH ×2 (09:54→21:50)
[2021-05-30] MEDS ORDERED: PANTOPRAZOLE 40 MG TAB PO SCH (10:00)
[2021-05-30] MEDS ORDERED: ASPirin 81 mg TAB PO SCH (10:00)
[2021-05-30] MEDS ORDERED: RANOLAZINE ER 500 MG TAB PO SCH (10:00)
[2021-05-30] MEDS ORDERED: ISOSORBIDE MONONITRATE ER 60 MG TAB PO SCH (10:00)
[2021-05-30] MEDS: FUROSEMIDE 40 MG/4 ML VIAL IV SCH (10:04)
[2021-05-30] MEDS: TICAGRELOR 90 MG TAB PO SCH ×2 (10:05→21:50)
[2021-05-30] MEDS: PANTOPRAZOLE 40 MG TAB PO SCH (10:06)
[2021-05-30] MEDS: CARVEDILOL 12.5 MG TAB PO SCH ×2 (10:06→21:50)
[2021-05-30] MEDS: dilTIAZem HCL 180MG ER CAP PO SCH (10:07)
[2021-05-30] MEDS ORDERED: HEPARIN DRIP/D5W 100UNITS/ML 250 ML IV SCH (10:45)
[2021-05-30] MEDS ORDERED: HYDROmorphone HCL 2 MG/ML VL IV ONE (10:45)
[2021-05-30 11:17] LABS: Basophils # (auto) 0 10 ^3/uL (0-0.2); Basophils % (auto) 0.2 % (0.0-2.0); Eosinophils # (auto) 0 10 ^3/uL (0-0.8); Hematocrit 32.7 % (36.0-46.0); Hemoglobin 10.8 g/dL (12.2-16.2); Lymphocytes # (auto) 0.3 10 ^3/uL (0.4-5.4); Lymphocytes % (auto) 1.7 % (10.0-50.0); Mean Corpuscular Hemoglobin 29.2 pg (28.0-32.0); Mean Corpuscular Volume 88.6 fL (80.0-100.0); Monocytes # (auto) 0.6 10 ^3/uL (0-1.3); Monocytes % (auto) 2.9 % (0.0-12.0); Neutrophils # (auto) 18.4 10 ^3/uL (1.6-8.6); Neutrophils % (auto) 95.2 % (37.0-80.0); Red Blood Cells 3.68 10^6/uL (4.0-5.20); Red Cell Distribution Width 15.2 % (11.8-14.3); White Blood Cell 19.3 10^3/uL (4.4-10.8)
[2021-05-30 11:31] LABS: INR 1.02 (0.9-1.15); Partial Thromboplastin Time 27.9 sec (23.6-33.0)
[2021-05-30] MEDS ORDERED: SIMETHICONE 80 MG CHEWABLE TABLET PO PRN (14:00)
[2021-05-30] MEDS ORDERED: ALPRAZolam 0.25 MG TAB PO PRN (14:00)
[2021-05-30 19:55] LABS: INR 1.05 (0.9-1.15)
[2021-05-30] MEDS: HEPARIN DRIP/D5W 100UNITS/ML 250 ML IV SCH (20:45)
[2021-05-30] MEDS: HYDROmorphone HCL 2 MG/ML VL IV PRN (21:41)
[2021-05-31] VITALS (71 sets, daily range): BP systolic 77–145; BP diastolic 45–86
[2021-05-31 04:22] LABS: Basophils # (auto) 0 10 ^3/uL (0-0.2); Basophils % (auto) 0.2 % (0.0-2.0); Eosinophils # (auto) 0 10 ^3/uL (0-0.8); Hematocrit 31.4 % (36.0-46.0); Hemoglobin 10.4 g/dL (12.2-16.2); Lymphocytes # (auto) 0.8 10 ^3/uL (0.4-5.4); Lymphocytes % (auto) 6.5 % (10.0-50.0); Mean Corpuscular Hemoglobin 29.1 pg (28.0-32.0); Mean Corpuscular Hgb Conc. 33.1 g/dL (32.0-36.0); Mean Corpuscular Volume 87.9 fL (80.0-100.0); Monocytes # (auto) 0.7 10 ^3/uL (0-1.3); Monocytes % (auto) 6.2 % (0.0-12.0); Neutrophils # (auto) 10.5 10 ^3/uL (1.6-8.6); Neutrophils % (auto) 87.1 % (37.0-80.0); Nucleated Red Blood Cells % 0.2 %; Red Blood Cells 3.57 10^6/uL (4.0-5.20); Red Cell Distribution Width 15.1 % (11.8-14.3); White Blood Cell 12.1 10^3/uL (4.4-10.8)
[2021-05-31 04:41] LABS: Calcium 9.1 mg/dL (8.5-10.1); INR 1.04 (0.9-1.15); Partial Thromboplastin Time 53.6 sec (23.6-33.0)
[2021-05-31] MEDS: HYDROmorphone HCL 2 MG/ML VL IV PRN ×4 (05:03→23:25)
[2021-05-31] MEDS: LEVOTHYROXINE SODIUM 50 MCG TAB PO SCH (06:27)
[2021-05-31] MEDS: CARVEDILOL 12.5 MG TAB PO SCH ×2 (09:09→20:17)
[2021-05-31] MEDS ORDERED: HYDROcodone-ACET 5/325MG TAB PO PRN (10:00)
[2021-05-31] MEDS ORDERED: ISOSORBIDE MONONITRATE ER 60 MG TAB PO SCH (10:00)
[2021-05-31] MEDS ORDERED: ASPirin 81 mg TAB PO SCH (10:00)
[2021-05-31] MEDS: FUROSEMIDE 40 MG/4 ML VIAL IV SCH (10:04)
[2021-05-31] MEDS: NITROGLYCERIN 50MG/250ML 250 ML IV SCH (10:09)
[2021-05-31] MEDS: RANOLAZINE ER 500 MG TAB PO SCH ×2 (10:09→20:16)
[2021-05-31] MEDS: TICAGRELOR 90 MG TAB PO SCH ×2 (10:10→20:17)
[2021-05-31] MEDS: dilTIAZem HCL 180MG ER CAP PO SCH (10:11)
[2021-05-31] MEDS: PANTOPRAZOLE 40 MG TAB PO SCH (10:11)
[2021-05-31 12:10] LABS: INR 0.97 (0.9-1.15); Partial Thromboplastin Time 54.8 sec (23.6-33.0)
[2021-05-31 14:29] LABS: Urine Bacteria FEW /hpf (None Seen); Urine Blood Negative /uL (Negative); Urine Specific Gravity 1.021 (1.001-1.035); Urine WBC 1 /hpf (0 - 5)
[2021-05-31 14:45] LABS: Protein, Urine 27.2 mg/dL (0.0-11.9)
[2021-05-31 17:26] LABS: INR 0.97 (0.9-1.15); Partial Thromboplastin Time 55.8 sec (23.6-33.0)
[2021-05-31] MEDS: HEPARIN DRIP/D5W 100UNITS/ML 250 ML IV SCH (20:45)
[2021-05-31] MEDS: ONDANSETRON HCL 4 MG/2 ML VIAL IV PRN (23:36)
[2021-06-01] VITALS (11 sets, daily range): BP systolic 83–114; BP diastolic 44–64
[2021-06-01] MEDS ORDERED: ALBUMIN 5% 250 ML IV ONE ×2 (00:45→00:48)
[2021-06-01] MEDS ORDERED: PHENYLEPHRINE IV 250 ML IV ONE (01:24)
[2021-06-01] MEDS ORDERED: PHENYLEPHRINE IV 250 ML IV SCH (01:30)
[2021-06-01] MEDS: MORPHINE SULFATE INJECTION 2 MG/ML SYRG IV PRN (02:07)
[2021-06-01] MEDS ORDERED: SODIUM CHLORIDE 0.9% 500 ML IV ONE (02:30)
[2021-06-01] MEDS ORDERED: MAGNESIUM SULFATE 1GM/100ML 100 ML IV ONE (08:50)
== END 2021-06-01 03:30 | disposition short-term general hospital (02) | DRG 281 ==
LOC: EDBD 21:01 → ER 21:04 → TELE 05-30 01:06 → ICU WEST 05-30 09:28
PROVIDERS: ADMIT Nurse Practitioner; ATTEND Internal Medicine
PROC: 05HC33Z Insertion of Infusion Device into Left Basilic Vein, Percutaneous Approach (ICD-10-PCS; principal; 2021-05-31)
PROC: B54NZZA Ultrasonography of Left Upper Extremity Veins, Guidance (ICD-10-PCS; 2021-05-31)
DX: I21.4 Non-ST elevation (NSTEMI) myocardial infarction (principal); N17.9 Acute kidney failure, unspecified; I16.1 Hypertensive emergency; I13.0 Hypertensive heart and chronic kidney disease with heart failure and stage 1 through stage 4 chronic kidney disease, or unspecified chronic kidney disease; I50.22 Chronic systolic (congestive) heart failure; D72.829 Elevated white blood cell count, unspecified; E03.9 Hypothyroidism, unspecified; Z20.822 Contact with and (suspected) exposure to COVID-19; I25.110 Atherosclerotic heart disease of native coronary artery with unstable angina pectoris; N18.32 Chronic kidney disease, stage 3b; E78.5 Hyperlipidemia, unspecified; Z95.1 Presence of aortocoronary bypass graft; Z88.0 Allergy status to penicillin; Z88.8 Allergy status to other drugs, medicaments and biological substances; Z72.0 Tobacco use
CPT/HCPCS: 36415; 71045; 76775; 80048; 80053; 81001; 82570; 83605; 83880; 84156; 84300; 84484; 85007; 85025; 85027; 85379; 85610; 85730; 86850; 86900; 86901; 87040; 87077; 87081; 93005; 93306; 96372; 96374; 96375; 99291; G0378; J2405

== ENCOUNTER 2021-06-17 01:23 | Inpatient (IN) | payer OTHER, MEDICARE ==
[~2021-06-17] VITALS: Ht 152.4 cm; Wt 57.9 kg
[2021-06-17] MEDS ORDERED: ONDANSETRON HCL 4 MG/2 ML VIAL IV ONE (01:45)
[2021-06-17] MEDS ORDERED: NITROGLYCERIN 0.4 MG SL TAB SL ONE ×2 (01:45→03:30)
[2021-06-17] MEDS ORDERED: MORPHINE SULFATE 4 MG/ML SYR/VIAL IV ONE (02:00)
[2021-06-17 02:09] LABS: Hematocrit 29.8 % (36.0-46.0); Hemoglobin 9.8 g/dL (12.2-16.2); Mean Corpuscular Hemoglobin 29.8 pg (28.0-32.0); Mean Corpuscular Volume 90.4 fL (80.0-100.0); Red Cell Distribution Width 16.2 % (11.8-14.3); White Blood Cell 6.7 10^3/uL (4.4-10.8)
[2021-06-17 02:16] LABS: Albumin 3.1 g/dL (3.4-5.0); BUN/Creatinine Ratio 16.2; Calcium 9.5 mg/dL (8.5-10.1); Potassium 5.1 mmol/L (3.5-5.1)
[2021-06-17 02:21] LABS: Bilirubin, Total 0.4 mg/dL (0.2-1.0); Total Protein 7.1 g/dL (6.4-8.2)
[2021-06-17 02:24] LABS: INR 0.98 (0.9-1.15); Partial Thromboplastin Time 25.2 sec (23.6-33.0)
[2021-06-17 02:25] LABS: Basophils % (manual) 0 (0.0-2.0); Blast Cells 0; Metamyelocytes % 0; Promyelocytes % 0; Reactive Lymphocytes 0
[2021-06-17 03:45] LABS: Band Neutrophils % (manual) 2; Eosinophils % (manual) 2 (0-7); Monocytes % (manual) 8 (0-12); Myelocytes % 4
[2021-06-17 03:46] LABS: Lymphocytes % (manual) 20 (10.0-50.0)
[2021-06-17] MEDS ORDERED: DOCUSATE SOD 100 MG CAP PO PRN (05:00)
[2021-06-17] MEDS ORDERED: MORPHINE SULFATE 4 MG/ML SYR/VIAL IV PRN (05:00)
[2021-06-17] MEDS ORDERED: ACETAMINOPHEN 325 MG TAB PO PRN (05:00)
[2021-06-17] MEDS ORDERED: NITROGLYCERIN 0.4 MG SL TAB SL PRN (05:30)
[2021-06-17] MEDS: SODIUM CHLOR 0.9% PF (SALINE LOCK) 10ML VIAL/SYR IV SCH ×3 (06:13→21:55)
[2021-06-17] MEDS: GABAPENTIN 300 MG CAP PO SCH ×3 (06:14→21:55)
[2021-06-17] MEDS: LEVOTHYROXINE SODIUM 100 MCG TAB PO SCH (06:41)
[2021-06-17 06:58] LABS: Hematocrit 30.5 % (36.0-46.0); Hemoglobin 10.1 g/dL (12.2-16.2); Mean Corpuscular Hemoglobin 30.1 pg (28.0-32.0); Mean Corpuscular Hgb Conc. 33.3 g/dL (32.0-36.0); Mean Corpuscular Volume 90.3 fL (80.0-100.0); Red Blood Cells 3.37 10^6/uL (4.0-5.20); Red Cell Distribution Width 16.3 % (11.8-14.3)
[2021-06-17 07:03] LABS: Basophils % (manual) 0 (0.0-2.0); Blast Cells 0; Eosinophils % (manual) 0 (0-7); Promyelocytes % 0; Reactive Lymphocytes 0
[2021-06-17 07:17] LABS: Albumin 3.3 g/dL (3.4-5.0); Calcium 9.5 mg/dL (8.5-10.1); Potassium 4.8 mmol/L (3.5-5.1)
[2021-06-17 07:18] LABS: Band Neutrophils % (manual) 1; Lymphocytes % (manual) 30 (10.0-50.0); Metamyelocytes % 2; Monocytes % (manual) 6 (0-12); Myelocytes % 1
[2021-06-17 07:20] LABS: BUN/Creatinine Ratio 17.1; Bilirubin, Total 0.4 mg/dL (0.2-1.0); Total Protein 7.2 g/dL (6.4-8.2)
[2021-06-17 08:22] VITALS: BP 113/70
[2021-06-17] MEDS ORDERED: MET50T PO (08:47)
[2021-06-17] MEDS ORDERED: HEPARIN SODIUM (PORCINE) 5000 UNITS/ML 1ML VIAL ONE (08:48)
[2021-06-17] MEDS ORDERED: PHE100C PO (08:50)
[2021-06-17] MEDS ORDERED: PANT1INJ3 PO (08:50)
[2021-06-17] MEDS ORDERED: ATOR-47 PO (08:50)
[2021-06-17] MEDS ORDERED: LISI40TA11 PO (08:55)
[2021-06-17] MEDS ORDERED: ASPI-543 PO (08:55)
[2021-06-17] MEDS ORDERED: ISOS60TA24 PO (08:55)
[2021-06-17] MEDS ORDERED: LEVO150T10 PO (08:55)
[2021-06-17] MEDS ORDERED: DEXA2TAB PO (08:55)
[2021-06-17 08:58] VITALS: BP 113/70
[2021-06-17] MEDS: MORPHINE SULFATE INJECTION 2 MG/ML SYRG IV PRN ×4 (09:17→21:45)
[2021-06-17] MEDS: HEPARIN SODIUM (PORCINE) 5000 UNITS/ML 1ML VIAL SC SCH ×2 (09:33→21:55)
[2021-06-17] MEDS: ASPirin 81 mg TAB PO SCH (09:33)
[2021-06-17] MEDS: FAMOTIDINE (10MG/ML) 2ML VL IV SCH (09:33)
[2021-06-17] MEDS: HYDROcodone-ACET 5/325MG TAB PO PRN (11:29)
[2021-06-17] MEDS: ALPRAZolam 0.5 MG TAB PO PRN ×2 (12:39→22:30)
[2021-06-17 13:00] VITALS: BP 115/78
[2021-06-17 17:00] VITALS: BP 105/73
[2021-06-17] MEDS: ONDANSETRON HCL 4 MG/2 ML VIAL IV PRN (18:34)
[2021-06-17] MEDS: CARVEDILOL 3.125 MG TAB PO SCH (21:55)
[2021-06-17] MEDS: ATORVASTATIN 20 MG TAB PO SCH (21:55)
[2021-06-17 22:00] VITALS: BP 116/74
[2021-06-18] MEDS: MORPHINE SULFATE INJECTION 2 MG/ML SYRG IV PRN ×4 (04:06→22:17)
[2021-06-18 04:17] VITALS: BP 115/75
[2021-06-18] MEDS: GABAPENTIN 300 MG CAP PO SCH ×3 (06:00→22:17)
[2021-06-18] MEDS: SODIUM CHLOR 0.9% PF (SALINE LOCK) 10ML VIAL/SYR IV SCH ×3 (06:00→22:16)
[2021-06-18] MEDS: LEVOTHYROXINE SODIUM 100 MCG TAB PO SCH (06:00)
[2021-06-18 06:14] LABS: Basophils # (auto) 0.1 10 ^3/uL (0-0.2); Basophils % (auto) 1.2 % (0.0-2.0); Eosinophils # (auto) 0.2 10 ^3/uL (0-0.8); Eosinophils % (auto) 2.5 % (0.0-7.0); Hematocrit 32.2 % (36.0-46.0); Hemoglobin 10.8 g/dL (12.2-16.2); Lymphocytes # (auto) 1.6 10 ^3/uL (0.4-5.4); Lymphocytes % (auto) 22.6 % (10.0-50.0); Mean Corpuscular Hemoglobin 30.2 pg (28.0-32.0); Mean Corpuscular Hgb Conc. 33.5 g/dL (32.0-36.0); Mean Corpuscular Volume 90.4 fL (80.0-100.0); Monocytes # (auto) 0.6 10 ^3/uL (0-1.3); Monocytes % (auto) 9.1 % (0.0-12.0); Neutrophils # (auto) 4.5 10 ^3/uL (1.6-8.6); Neutrophils % (auto) 64.6 % (37.0-80.0); Nucleated Red Blood Cells % 0.2 %; Red Blood Cells 3.56 10^6/uL (4.0-5.20); Red Cell Distribution Width 16.8 % (11.8-14.3)
[2021-06-18 06:31] LABS: Potassium 4.8 mmol/L (3.5-5.1)
[2021-06-18 06:36] LABS: Albumin 3.2 g/dL (3.4-5.0); Bilirubin, Total 0.4 mg/dL (0.2-1.0); Calcium 9.4 mg/dL (8.5-10.1); Uric Acid 8.4 mg/dL (2.6-6.0)
[2021-06-18] MEDS: HYDROcodone-ACET 5/325MG TAB PO PRN ×2 (08:34→19:44)
[2021-06-18 08:41] VITALS: BP 105/74
[2021-06-18] MEDS: CARVEDILOL 3.125 MG TAB PO SCH ×2 (09:41→22:16)
[2021-06-18] MEDS: ISOSORBIDE MONONITRATE ER 60 MG TAB PO SCH (09:41)
[2021-06-18] MEDS: ASPirin 81 mg TAB PO SCH (09:41)
[2021-06-18] MEDS: CLOPIDOGREL BISULFATE 75 MG TAB PO SCH (09:41)
[2021-06-18] MEDS: FAMOTIDINE (10MG/ML) 2ML VL IV SCH (09:41)
[2021-06-18] MEDS: HEPARIN SODIUM (PORCINE) 5000 UNITS/ML 1ML VIAL SC SCH ×2 (09:42→22:18)
[2021-06-18] MEDS ORDERED: ENOXAPARIN SOD 60 MG/0.6 ML SYRINGE SC ONE (12:30)
[2021-06-18] MEDS: ALPRAZolam 0.5 MG TAB PO PRN ×2 (12:57→23:56)
[2021-06-18 12:58] VITALS: BP 108/66
[2021-06-18 17:00] VITALS: BP 102/56
[2021-06-18] MEDS: SOD CHL 0.45% 1,000 ML IV SCH (18:14)
[2021-06-18 22:00] VITALS: BP 141/80
[2021-06-18] MEDS: ATORVASTATIN 20 MG TAB PO SCH (22:16)
[2021-06-18] MEDS: ONDANSETRON HCL 4 MG/2 ML VIAL IV PRN (22:18)
[2021-06-19] VITALS (10 sets, daily range): BP systolic 90–141; BP diastolic 50–81
[2021-06-19] MEDS: SOD CHL 0.45% 1,000 ML IV SCH (05:13)
[2021-06-19] MEDS: SODIUM CHLOR 0.9% PF (SALINE LOCK) 10ML VIAL/SYR IV SCH ×3 (06:24→22:01)
[2021-06-19] MEDS: LEVOTHYROXINE SODIUM 100 MCG TAB PO SCH (06:25)
[2021-06-19] MEDS: GABAPENTIN 300 MG CAP PO SCH ×3 (06:25→22:01)
[2021-06-19] MEDS: ONDANSETRON HCL 4 MG/2 ML VIAL IV PRN (07:00)
[2021-06-19] MEDS: MORPHINE SULFATE INJECTION 2 MG/ML SYRG IV PRN (07:00)
[2021-06-19] MEDS: FAMOTIDINE (10MG/ML) 2ML VL IV SCH (08:32)
[2021-06-19] MEDS: HYDROcodone-ACET 5/325MG TAB PO PRN ×3 (08:34→19:57)
[2021-06-19] MEDS: ISOSORBIDE MONONITRATE ER 60 MG TAB PO SCH (08:34)
[2021-06-19] MEDS: CLOPIDOGREL BISULFATE 75 MG TAB PO SCH (08:34)
[2021-06-19] MEDS: CARVEDILOL 3.125 MG TAB PO SCH ×2 (08:34→22:00)
[2021-06-19] MEDS: ASPirin 81 mg TAB PO SCH (08:35)
[2021-06-19] MEDS: HEPARIN SODIUM (PORCINE) 5000 UNITS/ML 1ML VIAL SC SCH (10:00)
[2021-06-19] MEDS ORDERED: RANOLAZINE ER 500 MG TAB PO ONE (11:45)
[2021-06-19] MEDS ORDERED: LIDOCAINE 2%HCL (LOCAL ANESTH.) INJ 10ml MDV ONE (13:27)
[2021-06-19] MEDS ORDERED: IOHEXOL 350 MG/ML 100ML IJ ONE (13:27)
[2021-06-19] MEDS ORDERED: ANGIOMAX 250 MG VIAL IV ONE (13:29)
[2021-06-19] MEDS ORDERED: MIDAZOLAM HCL 2MG/2ML 2ml VIAL (1mg/ml) ONE (13:29)
[2021-06-19] MEDS ORDERED: fentaNYL CITRATE 100 MCG/2 ML VL ONE (13:29)
[2021-06-19] MEDS ORDERED: SODIUM CHL 0.9% 50 ML ONE (13:30)
[2021-06-19] MEDS ORDERED: diphenhdrAMINE HCL 50 MG/1 ML VL ONE (14:06)
[2021-06-19] MEDS ORDERED: IODIXANOL 320MG/ML 100ML BTL IV ONE (14:19)
[2021-06-19] MEDS ORDERED: ENOXAPARIN SOD 80 MG/0.8ML SYRINGE SC ONE (14:30)
[2021-06-19] MEDS ORDERED: SODIUM CHLORIDE 0.9% 1,000 ML IV ONE (17:15)
[2021-06-19] MEDS: ATORVASTATIN 20 MG TAB PO SCH (21:58)
[2021-06-19] MEDS: RANOLAZINE ER 500 MG TAB PO SCH (22:01)
[2021-06-19] MEDS: ALPRAZolam 0.5 MG TAB PO PRN (22:01)
[2021-06-20 05:00] VITALS: BP 105/59
[2021-06-20 06:05] LABS: Basophils # (auto) 0 10 ^3/uL (0-0.2); Basophils % (auto) 0.8 % (0.0-2.0); Eosinophils # (auto) 0.1 10 ^3/uL (0-0.8); Eosinophils % (auto) 2.5 % (0.0-7.0); Hematocrit 28.9 % (36.0-46.0); Hemoglobin 9.5 g/dL (12.2-16.2); Lymphocytes # (auto) 0.8 10 ^3/uL (0.4-5.4); Lymphocytes % (auto) 16.4 % (10.0-50.0); Mean Corpuscular Hemoglobin 29.7 pg (28.0-32.0); Monocytes # (auto) 0.6 10 ^3/uL (0-1.3); Monocytes % (auto) 13.3 % (0.0-12.0); Neutrophils # (auto) 3.1 10 ^3/uL (1.6-8.6); Nucleated Red Blood Cells % 0.1 %; Red Blood Cells 3.21 10^6/uL (4.0-5.20); Red Cell Distribution Width 15.7 % (11.8-14.3); White Blood Cell 4.7 10^3/uL (4.4-10.8)
[2021-06-20] MEDS: SODIUM CHLOR 0.9% PF (SALINE LOCK) 10ML VIAL/SYR IV SCH ×2 (06:12→13:19)
[2021-06-20 06:35] LABS: BUN/Creatinine Ratio 22.1; Calcium 9.4 mg/dL (8.5-10.1); Potassium 4.7 mmol/L (3.5-5.1)
[2021-06-20] MEDS: LEVOTHYROXINE SODIUM 100 MCG TAB PO SCH (06:47)
[2021-06-20] MEDS: HYDROcodone-ACET 5/325MG TAB PO PRN ×2 (06:48→12:23)
[2021-06-20 09:00] VITALS: BP 98/58
[2021-06-20] MEDS: CARVEDILOL 3.125 MG TAB PO SCH (09:21)
[2021-06-20] MEDS: FAMOTIDINE (10MG/ML) 2ML VL IV SCH (09:21)
[2021-06-20] MEDS: ASPirin 81 mg TAB PO SCH (09:21)
[2021-06-20] MEDS: CLOPIDOGREL BISULFATE 75 MG TAB PO SCH (09:22)
[2021-06-20] MEDS: GABAPENTIN 300 MG CAP PO SCH (09:22)
[2021-06-20] MEDS: ISOSORBIDE MONONITRATE ER 60 MG TAB PO SCH (09:22)
[2021-06-20] MEDS: RANOLAZINE ER 500 MG TAB PO SCH (09:23)
[2021-06-20] MEDS ORDERED: ENOXAPARIN SOD 30 MG/0.3 ML SYRINGE SC SCH (10:00)
[2021-06-20] MEDS ORDERED: ENOXAPARIN SOD 80 MG/0.8ML SYRINGE SC SCH (10:00)
[2021-06-20] MEDS ORDERED: CARV6.25 PO (11:09)
[2021-06-20 12:41] VITALS: BP 104/58
== END 2021-06-20 15:49 | disposition home or self-care (01) | DRG 246 ==
LOC: ER 01:23 → EDBD 01:23 → TELE 05:21 → TELE-EAST 08:01
PROVIDERS: ADMIT Nurse Practitioner Family; ATTEND Internal Medicine
PROC: 027034Z Dilation of Coronary Artery, One Artery with Drug-eluting Intraluminal Device, Percutaneous Approach (ICD-10-PCS; principal; 2021-06-19)
PROC: B211YZZ Fluoroscopy of Multiple Coronary Arteries using Other Contrast (ICD-10-PCS; 2021-06-19)
PROC: B213YZZ Fluoroscopy of Multiple Coronary Artery Bypass Grafts using Other Contrast (ICD-10-PCS; 2021-06-19)
PROC: B218YZZ Fluoroscopy of Left Internal Mammary Bypass Graft using Other Contrast (ICD-10-PCS; 2021-06-19)
PROC: 4A033BC Measurement of Arterial Pressure, Coronary, Percutaneous Approach (ICD-10-PCS; 2021-06-19)
DX: I21.4 Non-ST elevation (NSTEMI) myocardial infarction (principal); I50.43 Acute on chronic combined systolic (congestive) and diastolic (congestive) heart failure; N17.0 Acute kidney failure with tubular necrosis; E44.1 Mild protein-calorie malnutrition; I13.0 Hypertensive heart and chronic kidney disease with heart failure and stage 1 through stage 4 chronic kidney disease, or unspecified chronic kidney disease; I25.10 Atherosclerotic heart disease of native coronary artery without angina pectoris; I25.5 Ischemic cardiomyopathy; N18.32 Chronic kidney disease, stage 3b; E03.9 Hypothyroidism, unspecified; F17.210 Nicotine dependence, cigarettes, uncomplicated; Z20.822 Contact with and (suspected) exposure to COVID-19; J44.9 Chronic obstructive pulmonary disease, unspecified; E78.5 Hyperlipidemia, unspecified; F41.1 Generalized anxiety disorder; Z88.8 Allergy status to other drugs, medicaments and biological substances; Z88.0 Allergy status to penicillin; I25.2 Old myocardial infarction; Z80.9 Family history of malignant neoplasm, unspecified; Z82.49 Family history of ischemic heart disease and other diseases of the circulatory system; Z83.3 Family history of diabetes mellitus; Z98.61 Coronary angioplasty status
CPT/HCPCS: 36415; 71045; 71250; 73200; 80048; 80053; 83735; 83880; 84443; 84484; 84550; 85007; 85025; 85027; 85610; 85730; 86850; 86900; 86901; 87081; 93005; 96374; 96375; 96376; 97163; 99152; 99153; C1874; G0378; J2001; J2250; J2405; J3490; Q9967

== ENCOUNTER 2021-06-26 06:29 | Inpatient (IN) | payer OTHER, MEDICARE ==
[~2021-06-26] VITALS: Ht 165.1 cm; Wt 72.0 kg
[~2021-06-26 06:29] MED LIST changes: +ATOR-47 PO; -CARV12.544 PO; +CARV6.25 PO; +DEXA2TAB PO; -LISI40TA11 PO; +PANT1INJ3 PO; +PHE100C PO
[2021-06-26 07:18] LABS: Basophils # (auto) 0.1 10 ^3/uL (0-0.2); Basophils % (auto) 0.8 % (0.0-2.0); Eosinophils # (auto) 0.1 10 ^3/uL (0-0.8); Eosinophils % (auto) 1.3 % (0.0-7.0); Hematocrit 28.5 % (36.0-46.0); Hemoglobin 9.6 g/dL (12.2-16.2); Lymphocytes % (auto) 15.5 % (10.0-50.0); Mean Corpuscular Hemoglobin 29.5 pg (28.0-32.0); Mean Corpuscular Hgb Conc. 33.6 g/dL (32.0-36.0); Mean Corpuscular Volume 87.7 fL (80.0-100.0); Monocytes # (auto) 0.8 10 ^3/uL (0-1.3); Monocytes % (auto) 11.4 % (0.0-12.0); Neutrophils # (auto) 4.8 10 ^3/uL (1.6-8.6); Nucleated Red Blood Cells % 0.1 %; Red Blood Cells 3.25 10^6/uL (4.0-5.20); Red Cell Distribution Width 16.1 % (11.8-14.3); White Blood Cell 6.7 10^3/uL (4.4-10.8)
[2021-06-26] MEDS ORDERED: ONDANSETRON HCL 4 MG/2 ML VIAL IV ONE (07:30)
[2021-06-26] MEDS ORDERED: MORPHINE SULFATE 4 MG/ML SYR/VIAL IV ONE (07:30)
[2021-06-26 07:36] LABS: Albumin 3.4 g/dL (3.4-5.0); BUN/Creatinine Ratio 13.4; Calcium 9.7 mg/dL (8.5-10.1); Potassium 4.3 mmol/L (3.5-5.1)
[2021-06-26 07:39] LABS: Bilirubin, Total 0.4 mg/dL (0.2-1.0); Total Protein 7.1 g/dL (6.4-8.2)
[2021-06-26] MEDS ORDERED: ENOXAPARIN SOD 80 MG/0.8ML SYRINGE SC ONE (08:00)
[2021-06-26] MEDS ORDERED: LABETALOL HCL 5 MG/ML 4ML SYRINGE IV ONE (09:00)
[2021-06-26] MEDS ORDERED: LABETALOL HCL 5 MG/ML 4ML SYRINGE IV PRN (10:30)
[2021-06-26] MEDS ORDERED: BUMETANIDE 2.5mg/10ml (0.25 mg/ml) INJ IV ONE (10:30)
[2021-06-26] MEDS ORDERED: hydrALAZINE HCL 20 MG/ML VL IV PRN (10:30)
[2021-06-26] MEDS: MORPHINE SULFATE INJECTION 2 MG/ML SYRG IV PRN ×3 (11:31→18:14)
[2021-06-26] MEDS ORDERED: ATORVASTATIN 20 MG TAB PO ONE (11:45)
[2021-06-26] MEDS ORDERED: METOPROLOL SUCCINATE XL 50 MG TAB PO ONE (11:45)
[2021-06-26] MEDS ORDERED: HYDROcodone-ACET 5/325MG TAB PO ONE (11:45)
[2021-06-26] MEDS ORDERED: HYDROcodone-ACET 5/325MG TAB PO PRN (11:45)
[2021-06-26] MEDS ORDERED: ONDANSETRON HCL 4 MG/2 ML VIAL IV PRN (11:45)
[2021-06-26] MEDS ORDERED: MORPHINE SULFATE INJECTION 2 MG/ML SYRG IV PRN (11:45)
[2021-06-26] MEDS ORDERED: IPRATROPIUM BROM 0.5 MG/2.5ML INH SOL NEB ONE (11:45)
[2021-06-26] MEDS ORDERED: NITROGLYCERIN 0.4 MG SL TAB SL PRN (11:45)
[2021-06-26] MEDS ORDERED: LACTULOSE 20Gm/30ML SOLN PO PRN (11:45)
[2021-06-26] MEDS ORDERED: ACETAMINOPHEN 325 MG TAB PO PRN (11:45)
[2021-06-26] MEDS ORDERED: PANTOPRAZOLE 40 MG/10 ML VIAL INJ IV ONE (11:45)
[2021-06-26] MEDS ORDERED: BENAZEPRIL HCL 10 MG TAB PO ONE (11:45)
[2021-06-26] MEDS ORDERED: IPRATROPIUM BROM 0.5 MG/2.5ML INH SOL NEB SCH (14:00)
[2021-06-26] MEDS: GABAPENTIN 300 MG CAP PO SCH ×2 (14:01→23:19)
[2021-06-26 14:54] LABS: INR 1.05 (0.9-1.15); Partial Thromboplastin Time 35.8 sec (23.6-33.0)
[2021-06-26 14:57] LABS: Magnesium 2.3 mg/dL (1.6-2.6); Phosphorus 3.4 mg/dL (2.5-4.90)
[2021-06-26] MEDS: NITROGLYCERIN 0.4 MG SL TAB SL PRN ×3 (17:56→18:10)
[2021-06-26 18:21] VITALS: BP 152/83
[2021-06-26 20:00] VITALS: BP 118/76
[2021-06-26] MEDS: BUMETANIDE 2.5mg/10ml (0.25 mg/ml) INJ IV SCH (20:01)
[2021-06-26] MEDS: ALPRAZolam 0.25 MG TAB PO PRN (20:02)
[2021-06-26 22:00] VITALS: BP 84/52
[2021-06-26] MEDS ORDERED: traZODone HCL 50 MG TAB PO SCH (22:00)
[2021-06-26] MEDS ORDERED: ISOSORBIDE MONONITRATE ER 60 MG TAB PO SCH (22:00)
[2021-06-26] MEDS ORDERED: POTASSIUM CHL 20 Meq TABLET PO SCH (22:00)
[2021-06-26] MEDS: TICAGRELOR 90 MG TAB PO SCH (23:17)
[2021-06-26] MEDS: MAGNESIUM OXIDE 400 MG TAB PO SCH (23:19)
[2021-06-26] MEDS: RANOLAZINE ER 500 MG TAB PO SCH (23:20)
[2021-06-27 05:00] VITALS: BP 91/50
[2021-06-27 05:35] LABS: INR 1.03 (0.9-1.15); Partial Thromboplastin Time 29.6 sec (23.6-33.0)
[2021-06-27 05:37] LABS: % Iron Saturation 18.5 % (15-50)
[2021-06-27 05:39] LABS: Basophils # (auto) 0.1 10 ^3/uL (0-0.2); Basophils % (auto) 1.1 % (0.0-2.0); Eosinophils # (auto) 0.1 10 ^3/uL (0-0.8); Eosinophils % (auto) 2.7 % (0.0-7.0); Hematocrit 29.7 % (36.0-46.0); Lymphocytes # (auto) 1.4 10 ^3/uL (0.4-5.4); Lymphocytes % (auto) 31.1 % (10.0-50.0); Mean Corpuscular Hemoglobin 29.7 pg (28.0-32.0); Mean Corpuscular Hgb Conc. 33.7 g/dL (32.0-36.0); Mean Corpuscular Volume 88.3 fL (80.0-100.0); Monocytes # (auto) 0.6 10 ^3/uL (0-1.3); Monocytes % (auto) 12.9 % (0.0-12.0); Neutrophils # (auto) 2.4 10 ^3/uL (1.6-8.6); Neutrophils % (auto) 52.2 % (37.0-80.0); Nucleated Red Blood Cells % 0.2 %; Red Blood Cells 3.36 10^6/uL (4.0-5.20); Red Cell Distribution Width 15.9 % (11.8-14.3); White Blood Cell 4.5 10^3/uL (4.4-10.8)
[2021-06-27 05:59] LABS: Albumin 3.1 g/dL (3.4-5.0); BUN/Creatinine Ratio 10.9; Calcium 9.4 mg/dL (8.5-10.1); Magnesium 2.1 mg/dL (1.6-2.6); Potassium 4.8 mmol/L (3.5-5.1)
[2021-06-27] MEDS: BUMETANIDE 2.5mg/10ml (0.25 mg/ml) INJ IV SCH (06:00)
[2021-06-27 06:03] LABS: Bilirubin, Total 0.4 mg/dL (0.2-1.0); Phosphorus 5.6 mg/dL (2.5-4.90); Total Protein 6.7 g/dL (6.4-8.2)
[2021-06-27 06:33] LABS: CRP High Sensitivity 0.265 mg/dL (< 0.3)
[2021-06-27] MEDS: GABAPENTIN 300 MG CAP PO SCH ×2 (06:41→14:53)
[2021-06-27] MEDS ORDERED: LEVOTHYROXINE SODIUM 112 MCG TAB PO SCH (07:00)
[2021-06-27 09:00] VITALS: BP 80/53
[2021-06-27 09:59] LABS: Alcohol, Urine < 3.0 mg/dL (0-10); Amphetamine Screen, Urine NEGATIVE (NEGATIVE); Barbiturate Scree,Urine NEGATIVE (NEGATIVE); Benzodiazephine Screen, Urine NEGATIVE (NEGATIVE); Cannabinoid Screen, Urine NEGATIVE (NEGATIVE); Cocaine Screen, Urine NEGATIVE (NEGATIVE); Opiate Scree,Urine NEGATIVE (NEGATIVE); Phencyclidine Screen, Urine NEGATIVE (NEGATIVE)
[2021-06-27] MEDS ORDERED: ENOXAPARIN SOD 40 MG/0.4 ML SYRINGE SC SCH (10:00)
[2021-06-27] MEDS ORDERED: CHOLECALCIFEROL (VITD3) 2,000 UNIT CAP/TAB PO SCH (10:00)
[2021-06-27] MEDS ORDERED: METOPROLOL SUCCINATE XL 50 MG TAB PO SCH (10:00)
[2021-06-27] MEDS ORDERED: dilTIAZem HCL 180MG ER CAP PO SCH (10:00)
[2021-06-27] MEDS ORDERED: PHENYTOIN SODIUM 100 MG CAP PO SCH (10:00)
[2021-06-27] MEDS ORDERED: PANTOPRAZOLE 40 MG/10 ML VIAL INJ IV SCH (10:00)
[2021-06-27] MEDS ORDERED: BENAZEPRIL HCL 10 MG TAB PO SCH (10:00)
[2021-06-27] MEDS ORDERED: ASPirin-EC 81 mg tab PO SCH (10:00)
[2021-06-27] MEDS: TICAGRELOR 90 MG TAB PO SCH (12:56)
[2021-06-27] MEDS: MAGNESIUM OXIDE 400 MG TAB PO SCH (12:56)
[2021-06-27] MEDS: RANOLAZINE ER 500 MG TAB PO SCH (12:57)
[2021-06-27] MEDS: ALPRAZolam 0.25 MG TAB PO PRN (12:58)
[2021-06-27 13:00] VITALS: BP 86/56
[2021-06-27 17:00] VITALS: BP 89/65
[2021-06-27 17:55] VITALS: BP 100/58
[2021-06-27] MEDS ORDERED: ATORVASTATIN 20 MG TAB PO SCH (22:00)
== END 2021-06-27 21:33 | disposition short-term general hospital (02) | DRG 280 ==
LOC: ER 06:29 → EDBD 06:29 → TELE 10:19 → TELE-WESTW 17:35
PROVIDERS: ADMIT Hospitalist; ATTEND Internal Medicine
DX: I21.9 Acute myocardial infarction, unspecified (principal); N17.0 Acute kidney failure with tubular necrosis; I50.43 Acute on chronic combined systolic (congestive) and diastolic (congestive) heart failure; I16.1 Hypertensive emergency; I13.0 Hypertensive heart and chronic kidney disease with heart failure and stage 1 through stage 4 chronic kidney disease, or unspecified chronic kidney disease; I27.9 Pulmonary heart disease, unspecified; I70.213 Atherosclerosis of native arteries of extremities with intermittent claudication, bilateral legs; I25.5 Ischemic cardiomyopathy; N18.32 Chronic kidney disease, stage 3b; I25.10 Atherosclerotic heart disease of native coronary artery without angina pectoris; G62.9 Polyneuropathy, unspecified; D64.9 Anemia, unspecified; Z20.822 Contact with and (suspected) exposure to COVID-19; E03.9 Hypothyroidism, unspecified; E78.5 Hyperlipidemia, unspecified; F39 Unspecified mood [affective] disorder; F41.9 Anxiety disorder, unspecified; I49.5 Sick sinus syndrome; J44.9 Chronic obstructive pulmonary disease, unspecified; Z79.02 Long term (current) use of antithrombotics/antiplatelets; Z79.82 Long term (current) use of aspirin; Z79.899 Other long term (current) drug therapy; Z80.9 Family history of malignant neoplasm, unspecified; Z82.49 Family history of ischemic heart disease and other diseases of the circulatory system; Z83.3 Family history of diabetes mellitus; Z95.1 Presence of aortocoronary bypass graft; Z95.5 Presence of coronary angioplasty implant and graft; Z88.0 Allergy status to penicillin; Z88.8 Allergy status to other drugs, medicaments and biological substances; Z72.0 Tobacco use
CPT/HCPCS: 36415; 71045; 80053; 80061; 80307; 82550; 83036; 83540; 83550; 83615; 83690; 83735; 83880; 84100; 84443; 84484; 85025; 85379; 85610; 85652; 85730; 86141; 87040; 87086; 87088; 87186; 87205; 93005; 93925; 96372; 96374; 96375; 99291; C9113; G0378; J2405

== ENCOUNTER 2021-12-25 02:49 | Inpatient (IN) | payer OTHER, MEDICARE ==
[~2021-12-25] VITALS: Ht 152.4 cm; Wt 55.0 kg
[2021-12-25] VITALS (12 sets, daily range): BP systolic 111–181; BP diastolic 68–95
[2021-12-25 03:46] LABS: Basophils # (auto) 0.1 10 ^3/uL (0-0.2); Eosinophils # (auto) 0.4 10 ^3/uL (0-0.8); Hemoglobin 9.1 g/dL (12.2-16.2); Monocytes # (auto) 0.8 10 ^3/uL (0-1.3); Monocytes % (auto) 12.4 % (0.0-12.0)
[2021-12-25 03:49] LABS: Basophils % (auto) 2.1 % (0.0-2.0); Eosinophils % (auto) 6.8 % (0.0-7.0); Hematocrit 28.9 % (36.0-46.0); Lymphocytes # (auto) 1.4 10 ^3/uL (0.4-5.4); Lymphocytes % (auto) 23.2 % (10.0-50.0); Mean Corpuscular Hemoglobin 23.1 pg (28.0-32.0); Mean Corpuscular Hgb Conc. 31.6 g/dL (32.0-36.0); Neutrophils # (auto) 3.5 10 ^3/uL (1.6-8.6); Neutrophils % (auto) 55.5 % (37.0-80.0); Red Blood Cells 3.96 10^6/uL (4.0-5.20); White Blood Cell 6.2 10^3/uL (4.4-10.8)
[2021-12-25] MEDS ORDERED: METOPROLOL TARTRATE 1MG/1ML-5ML VIAL IV ONE (04:15)
[2021-12-25] MEDS ORDERED: ONDANSETRON HCL 4 MG/2 ML VIAL IV ONE (04:15)
[2021-12-25] MEDS ORDERED: MORPHINE SULFATE 4 MG/ML SYR/VIAL IV ONE (04:15)
[2021-12-25] MEDS ORDERED: SODIUM CHLORIDE 0.9% 1,000 ML IV ONE (04:15)
[2021-12-25 04:17] LABS: Albumin 3.3 g/dL (3.4-5.0); Calcium 9.1 mg/dL (8.5-10.1); Potassium 4.4 mmol/L (3.5-5.1)
[2021-12-25 04:20] LABS: BUN/Creatinine Ratio 13.1; Bilirubin, Total 0.2 mg/dL (0.2-1.0); Total Protein 6.9 g/dL (6.4-8.2)
[2021-12-25] MEDS ORDERED: HEPARIN SODIUM (PORCINE) 5000 UNITS/ML 1ML VIAL IV ONE (04:45)
[2021-12-25 05:17] LABS: INR 0.95 (0.9-1.15); Partial Thromboplastin Time 21.9 sec (24.6-33.4)
[2021-12-25] MEDS: HEPARIN DRIP/D5W 100UNITS/ML 250 ML IV SCH (05:40)
[2021-12-25] MEDS ORDERED: HYDROmorphone HCL 2 MG/ML VL/or syr IV ONE (06:00)
[2021-12-25] MEDS ORDERED: HEPARIN DRIP/D5W 100UNITS/ML 250 ML IV SCH (07:00)
[2021-12-25] MEDS ORDERED: NITROGLYCERIN 0.4 MG SL TAB SL PRN (07:15)
[2021-12-25 07:25] LABS: Urine Bacteria FEW /hpf (None Seen); Urine Blood Negative /uL (Negative); Urine Specific Gravity 1.009 (1.001-1.035); Urine WBC 1 /hpf (0 - 5)
[2021-12-25] MEDS: MORPHINE SULFATE INJ 2 MG/ml SYRG IV PRN ×4 (08:22→21:49)
[2021-12-25] MEDS ORDERED: PHENYTOIN PO SCH (10:00)
[2021-12-25] MEDS ORDERED: LIDOCAINE 2%HCL (LOCAL ANESTH.) INJ 20ML MDV ONE (10:26)
[2021-12-25] MEDS ORDERED: IODIXANOL 320MG/ML 100ML BTL IV ONE (10:26)
[2021-12-25] MEDS ORDERED: HEPARIN SODIUM (PORCINE) 5000 UNITS/ML 1ML VIAL ONE (10:34)
[2021-12-25] MEDS ORDERED: fentaNYL CITRATE 100 MCG/2 ML VL ONE (10:34)
[2021-12-25] MEDS ORDERED: ANGIOMAX 250 MG VIAL IV ONE (10:34)
[2021-12-25] MEDS ORDERED: VERAPAMIL 2.5MG/ML INJ 2ML VIAL IV ONE (10:34)
[2021-12-25] MEDS ORDERED: MIDAZOLAM HCL 2MG/2ML 2ml VIAL (1mg/ml) ONE (10:34)
[2021-12-25] MEDS ORDERED: SODIUM CHL 0.9% 0 ML ONE (10:35)
[2021-12-25] MEDS ORDERED: ALPRAZolam 0.25 MG TAB PO PRN (13:00)
[2021-12-25 13:10] LABS: Partial Thromboplastin Time 32.6 sec (24.6-33.4)
[2021-12-25] MEDS: ONDANSETRON HCL 4 MG/2 ML VIAL IV PRN (15:10)
[2021-12-25] MEDS: ASPirin 81 mg TAB PO SCH (16:54)
[2021-12-25] MEDS: CARVEDILOL 3.125 MG TAB PO SCH ×2 (16:55→21:53)
[2021-12-25] MEDS: dilTIAZem HCL 180MG ER CAP PO SCH (16:55)
[2021-12-25] MEDS: PANTOPRAZOLE 40 MG TAB PO SCH (16:56)
[2021-12-25] MEDS: RANOLAZINE ER 500 MG TAB PO SCH ×2 (16:56→21:48)
[2021-12-25] MEDS: ISOSORBIDE MONONITRATE ER 60 MG TAB PO SCH (16:56)
[2021-12-25] MEDS: TICAGRELOR 90 MG TAB PO SCH ×2 (17:02→21:52)
[2021-12-25] MEDS ORDERED: LISI40TA11 PO (17:02)
[2021-12-25] MEDS ORDERED: RIVA2.5T PO (17:02)
[2021-12-25] MEDS ORDERED: PANT40T PO (17:02)
[2021-12-25] MEDS ORDERED: GABA400C11 PO (17:02)
[2021-12-25] MEDS: HYDROcodone-ACET 5/325MG TAB PO PRN (17:03)
[2021-12-25] MEDS: ATORVASTATIN 20 MG TAB PO SCH (21:53)
[2021-12-25] MEDS: TEMAZEPAM 15 MG CAP PO PRN (22:38)
[2021-12-26] VITALS (10 sets, daily range): BP systolic 94–155; BP diastolic 56–79
[2021-12-26 06:04] LABS: Basophils # (auto) 0.1 10 ^3/uL (0-0.2); Basophils % (auto) 1.2 % (0.0-2.0); Eosinophils # (auto) 0.3 10 ^3/uL (0-0.8); Eosinophils % (auto) 6.5 % (0.0-7.0); Hematocrit 26.4 % (36.0-46.0); Lymphocytes % (auto) 18.7 % (10.0-50.0); Mean Corpuscular Hemoglobin 22.5 pg (28.0-32.0); Mean Corpuscular Hgb Conc. 30.4 g/dL (32.0-36.0); Monocytes # (auto) 0.8 10 ^3/uL (0-1.3); Monocytes % (auto) 15.4 % (0.0-12.0); Neutrophils % (auto) 58.2 % (37.0-80.0); Red Blood Cells 3.57 10^6/uL (4.0-5.20); Red Cell Distribution Width 16.6 % (11.8-14.3); White Blood Cell 5.2 10^3/uL (4.4-10.8)
[2021-12-26] MEDS: LEVOTHYROXINE SODIUM 50 MCG TAB PO SCH (06:04)
[2021-12-26 06:25] LABS: Calcium 9.5 mg/dL (8.5-10.1)
[2021-12-26 06:54] LABS: Potassium 5.6 mmol/L (3.5-5.1)
[2021-12-26] MEDS ORDERED: SODIUM ZIRCONIUM CYCL 10 GM PAK PO ONE (09:00)
[2021-12-26] MEDS ORDERED: NITROGLYCERIN 0.4MG/HR TOPICAL PATCH TD SCH (10:00)
[2021-12-26] MEDS: ASPirin 81 mg TAB PO SCH (10:53)
[2021-12-26] MEDS: RANOLAZINE ER 500 MG TAB PO SCH ×2 (10:54→22:16)
[2021-12-26] MEDS: dilTIAZem HCL 180MG ER CAP PO SCH (10:55)
[2021-12-26] MEDS: CARVEDILOL 3.125 MG TAB PO SCH ×2 (10:57→22:15)
[2021-12-26] MEDS: TICAGRELOR 90 MG TAB PO SCH ×2 (10:57→22:16)
[2021-12-26] MEDS: PANTOPRAZOLE 40 MG TAB PO SCH (10:57)
[2021-12-26] MEDS: MAGNESIUM OXIDE 400 MG TAB PO SCH (10:58)
[2021-12-26] MEDS: ISOSORBIDE MONONITRATE ER 60 MG TAB PO SCH (11:00)
[2021-12-26] MEDS: HYDROcodone-ACET 5/325MG TAB PO PRN ×3 (11:03→23:27)
[2021-12-26] MEDS ORDERED: B-COMPLEX W/ C & FOLIC ACID(NEPHROVITE TAB) PO ONE (11:45)
[2021-12-26 12:31] LABS: % Iron Saturation 7.8 % (15-50)
[2021-12-26 15:46] LABS: Potassium 5.2 mmol/L (3.5-5.1); Sodium 140 mmol/L (136-145)
[2021-12-26 15:47] LABS: Anion Gap 10 (5-15); BUN/Creatinine Ratio 12.2; Blood Urea Nitrogen 23 mg/dL (7-18); Calcium 9.1 mg/dL (8.5-10.1); Carbon Dioxide 22 mmol/L (21-32); Chloride 108 mmol/L (98-107); GFR African American 36 mL/min; GFR Non-African American 30 mL/min; Glucose 106 mg/dL (74-106)
[2021-12-26] MEDS: MORPHINE SULFATE INJ 2 MG/ml SYRG IV PRN (20:22)
[2021-12-26] MEDS: ATORVASTATIN 20 MG TAB PO SCH (22:16)
[2021-12-27] MEDS: TEMAZEPAM 15 MG CAP PO PRN (01:29)
[2021-12-27 05:00] VITALS: BP 158/59
[2021-12-27] MEDS: MORPHINE SULFATE INJ 2 MG/ml SYRG IV PRN ×4 (05:10→19:52)
[2021-12-27 06:20] LABS: Calcium 10.2 mg/dL (8.5-10.1); Potassium 4.8 mmol/L (3.5-5.1)
[2021-12-27] MEDS: LEVOTHYROXINE SODIUM 50 MCG TAB PO SCH (06:20)
[2021-12-27 06:24] LABS: Eosinophils # (auto) 0.3 10 ^3/uL (0-0.8)
[2021-12-27 06:28] LABS: Basophils # (auto) 0.1 10 ^3/uL (0-0.2); Basophils % (auto) 0.9 % (0.0-2.0); Eosinophils % (auto) 5.4 % (0.0-7.0); Hematocrit 32.9 % (36.0-46.0); Hemoglobin 10.5 g/dL (12.2-16.2); Lymphocytes # (auto) 0.8 10 ^3/uL (0.4-5.4); Lymphocytes % (auto) 11.7 % (10.0-50.0); Mean Corpuscular Hgb Conc. 31.9 g/dL (32.0-36.0); Mean Corpuscular Volume 75.3 fL (80.0-100.0); Monocytes # (auto) 0.7 10 ^3/uL (0-1.3); Monocytes % (auto) 10.3 % (0.0-12.0); Neutrophils # (auto) 4.6 10 ^3/uL (1.6-8.6); Neutrophils % (auto) 71.7 % (37.0-80.0); Nucleated Red Blood Cells % 0.1 %; Red Blood Cells 4.37 10^6/uL (4.0-5.20); Red Cell Distribution Width 18.5 % (11.8-14.3); White Blood Cell 6.5 10^3/uL (4.4-10.8)
[2021-12-27 09:20] VITALS: BP 151/90
[2021-12-27] MEDS ORDERED: ISOSORBIDE MONONITRATE ER 60 MG TAB PO ONE (10:30)
[2021-12-27] MEDS: RANOLAZINE ER 500 MG TAB PO SCH ×2 (10:48→21:54)
[2021-12-27] MEDS: ASPirin 81 mg TAB PO SCH (10:49)
[2021-12-27] MEDS: B-COMPLEX W/ C & FOLIC ACID(NEPHROVITE TAB) PO SCH (10:49)
[2021-12-27] MEDS: MAGNESIUM OXIDE 400 MG TAB PO SCH (10:49)
[2021-12-27] MEDS: ATORVASTATIN 20 MG TAB PO SCH ×2 (10:50→22:20)
[2021-12-27] MEDS: CARVEDILOL 3.125 MG TAB PO SCH ×2 (10:51→21:54)
[2021-12-27] MEDS: PANTOPRAZOLE 40 MG TAB PO SCH (10:51)
[2021-12-27] MEDS: dilTIAZem HCL 180MG ER CAP PO SCH (10:52)
[2021-12-27] MEDS: TICAGRELOR 90 MG TAB PO SCH ×2 (11:05→21:53)
[2021-12-27 11:06] LABS: Free T4 (Free Thyroxine) 2.45 ng/dL (0.89-1.76)
[2021-12-27 11:07] LABS: T3 Total 1.6 ng/mL (0.60-1.81)
[2021-12-27 14:00] VITALS: BP 144/79
[2021-12-27] MEDS: ONDANSETRON HCL 4 MG/2 ML VIAL IV PRN (15:08)
[2021-12-27 16:43] VITALS: BP 127/79
[2021-12-27 21:30] VITALS: BP 126/72
[2021-12-28] MEDS: ONDANSETRON HCL 4 MG/2 ML VIAL IV PRN ×2 (00:08→06:32)
[2021-12-28] MEDS: MORPHINE SULFATE INJ 2 MG/ml SYRG IV PRN ×3 (00:20→09:39)
[2021-12-28 05:00] VITALS: BP 146/83
[2021-12-28 06:21] LABS: Potassium 5.1 mmol/L (3.5-5.1)
[2021-12-28 06:26] LABS: BUN/Creatinine Ratio 14.9
[2021-12-28] MEDS ORDERED: LEVOTHYROXINE SODIUM 50 MCG TAB PO SCH (07:00)
[2021-12-28 08:00] VITALS: BP 155/86
[2021-12-28] MEDS: ASPirin 81 mg TAB PO SCH (08:47)
[2021-12-28] MEDS: TICAGRELOR 90 MG TAB PO SCH (08:47)
[2021-12-28] MEDS: CARVEDILOL 3.125 MG TAB PO SCH (08:48)
[2021-12-28] MEDS: dilTIAZem HCL 180MG ER CAP PO SCH (08:48)
[2021-12-28] MEDS: PANTOPRAZOLE 40 MG TAB PO SCH (08:49)
[2021-12-28] MEDS: MAGNESIUM OXIDE 400 MG TAB PO SCH (08:49)
[2021-12-28] MEDS: B-COMPLEX W/ C & FOLIC ACID(NEPHROVITE TAB) PO SCH (08:49)
[2021-12-28] MEDS: RANOLAZINE ER 500 MG TAB PO SCH (08:50)
[2021-12-28 09:00] VITALS: BP 155/86
[2021-12-28] MEDS ORDERED: ISOSORBIDE MONONITRATE ER 60 MG TAB PO SCH (10:00)
[2021-12-28] MEDS ORDERED: LEV50T PO (10:36)
[2021-12-28] MEDS ORDERED: NITR0.2D16 TD (10:36)
[2021-12-28 12:03] VITALS: BP 129/82
== END 2021-12-28 13:30 | disposition home or self-care (01) | DRG 281 ==
LOC: ER 02:49 → EDBD 02:49 → EDUNIT# 02:49 → TELE 07:10 → TELE-EAST 15:42
PROVIDERS: ADMIT Nurse Practitioner; ATTEND Internal Medicine
PROC: 4A023N7 Measurement of Cardiac Sampling and Pressure, Left Heart, Percutaneous Approach (ICD-10-PCS; principal; 2021-12-25)
PROC: B211YZZ Fluoroscopy of Multiple Coronary Arteries using Other Contrast (ICD-10-PCS; 2021-12-25)
PROC: B21FYZZ Fluoroscopy of Other Bypass Graft using Other Contrast (ICD-10-PCS; 2021-12-25)
PROC: B218YZZ Fluoroscopy of Left Internal Mammary Bypass Graft using Other Contrast (ICD-10-PCS; 2021-12-25)
PROC: B215YZZ Fluoroscopy of Left Heart using Other Contrast (ICD-10-PCS; 2021-12-25)
PROC: 30233N1 Transfusion of Nonautologous Red Blood Cells into Peripheral Vein, Percutaneous Approach (ICD-10-PCS; 2021-12-26)
DX: I21.4 Non-ST elevation (NSTEMI) myocardial infarction (principal); I13.0 Hypertensive heart and chronic kidney disease with heart failure and stage 1 through stage 4 chronic kidney disease, or unspecified chronic kidney disease; I50.42 Chronic combined systolic (congestive) and diastolic (congestive) heart failure; I25.110 Atherosclerotic heart disease of native coronary artery with unstable angina pectoris; N18.30 Chronic kidney disease, stage 3 unspecified; I25.5 Ischemic cardiomyopathy; E87.5 Hyperkalemia; E78.5 Hyperlipidemia, unspecified; D64.9 Anemia, unspecified; E03.9 Hypothyroidism, unspecified; F17.210 Nicotine dependence, cigarettes, uncomplicated; Z20.822 Contact with and (suspected) exposure to COVID-19; F41.9 Anxiety disorder, unspecified; I73.9 Peripheral vascular disease, unspecified; Z82.49 Family history of ischemic heart disease and other diseases of the circulatory system; Z80.9 Family history of malignant neoplasm, unspecified; Z95.1 Presence of aortocoronary bypass graft; Z83.3 Family history of diabetes mellitus; Z88.0 Allergy status to penicillin; Z88.8 Allergy status to other drugs, medicaments and biological substances
CPT/HCPCS: 36415; 71045; 80048; 80053; 81001; 83540; 83550; 83880; 84439; 84443; 84480; 84484; 85025; 85610; 85730; 86850; 86900; 86901; 86920; 93005; 93306; 96365; 96375; 99152; 99153; G0378; J2250; J2405; Q9967

== ENCOUNTER 2022-05-13 04:10 | Inpatient (IN) | payer OTHER, MEDICARE ==
[~2022-05-13] VITALS: Ht 152.4 cm; Wt 52.0 kg
[~2022-05-13 04:10] MED LIST changes: +GABA400C11 PO; +LEV50T PO; +LISI40TA11 PO; +NITR0.2D16 TD; +PANT40T PO; +RIVA2.5T PO
[2022-05-13 04:51] LABS: Urine Blood Negative /uL (Negative); Urine Specific Gravity 1.003 (1.001-1.035)
[2022-05-13] MEDS ORDERED: MORPHINE SULFATE 4 MG/ML SYR/VIAL IV ONE (05:00)
[2022-05-13] MEDS ORDERED: ONDANSETRON HCL 4 MG/2 ML VIAL IV ONE (05:00)
[2022-05-13 05:03] LABS: Basophils # (auto) 0.1 10 ^3/uL (0-0.2); Basophils % (auto) 1.3 % (0.0-2.0); Eosinophils # (auto) 0.2 10 ^3/uL (0-0.8); Eosinophils % (auto) 2.3 % (0.0-7.0); Lymphocytes # (auto) 1.3 10 ^3/uL (0.4-5.4); Mean Corpuscular Hemoglobin 26.9 pg (28.0-32.0); Mean Corpuscular Hgb Conc. 32.3 g/dL (32.0-36.0); Monocytes # (auto) 0.8 10 ^3/uL (0-1.3); Nucleated Red Blood Cells % 0.1 %
[2022-05-13 05:04] LABS: Hematocrit 33.9 % (36.0-46.0); Lymphocytes % (auto) 16.4 % (10.0-50.0); Mean Corpuscular Volume 83.1 fL (80.0-100.0); Monocytes % (auto) 10.4 % (0.0-12.0); Neutrophils # (auto) 5.5 10 ^3/uL (1.6-8.6); Neutrophils % (auto) 69.6 % (37.0-80.0); Red Blood Cells 4.08 10^6/uL (4.0-5.20); Red Cell Distribution Width 19.5 % (11.8-14.3); White Blood Cell 7.9 10^3/uL (4.4-10.8)
[2022-05-13 05:23] LABS: Albumin 3.4 g/dL (3.4-5.0); Calcium 9.6 mg/dL (8.5-10.1); Potassium 4.3 mmol/L (3.5-5.1)
[2022-05-13 05:26] LABS: BUN/Creatinine Ratio 9.4; Bilirubin, Total 0.2 mg/dL (0.2-1.0); Total Protein 6.8 g/dL (6.4-8.2)
[2022-05-13] MEDS: MORPHINE SULFATE 4 MG/ML SYR/VIAL IV PRN ×2 (08:19→19:54)
[2022-05-13] MEDS: ONDANSETRON HCL 4 MG/2 ML VIAL IV PRN ×2 (08:20→19:53)
[2022-05-13] MEDS ORDERED: cloNIDine HCL 0.1 MG TAB PO ONE ×2 (10:15→11:15)
[2022-05-13] MEDS ORDERED: NITROGLYCERIN 0.4 MG SL TAB SL ONE (10:15)
[2022-05-13] MEDS ORDERED: MORPHINE SULFATE INJ 2 MG/ml SYRG IV PRN (13:30)
[2022-05-13] MEDS ORDERED: PANTOPRAZOLE 40 MG/10 ML VIAL INJ IV ONE (13:30)
[2022-05-13] MEDS ORDERED: ACETAMINOPHEN 325 MG TAB PO PRN (13:30)
[2022-05-13] MEDS ORDERED: NITROGLYCERIN 0.4 MG SL TAB SL PRN (13:30)
[2022-05-13] MEDS: SODIUM CHLORIDE 0.9% 1,000 ML IV SCH (15:09)
[2022-05-13] MEDS: GABAPENTIN 400 MG CAP PO SCH ×2 (15:09→22:00)
[2022-05-13] MEDS: RANOLAZINE 1000 MG PO SCH (22:00)
[2022-05-13] MEDS: ISOSORBIDE MONONITRATE ER 60 MG TAB PO SCH (22:25)
[2022-05-13] MEDS: CARVEDILOL 3.125 MG TAB PO SCH (22:25)
[2022-05-13] MEDS: TICAGRELOR 90 MG TAB PO SCH (22:26)
[2022-05-13] MEDS: MAGNESIUM OXIDE 400 MG TAB PO SCH (22:26)
[2022-05-13] MEDS: MORPHINE SULFATE INJ 2 MG/ml SYRG IV PRN (23:50)
[2022-05-14] MEDS: ONDANSETRON HCL 4 MG/2 ML VIAL IV PRN ×2 (03:25→09:07)
[2022-05-14] MEDS: MORPHINE SULFATE 4 MG/ML SYR/VIAL IV PRN ×4 (03:26→20:44)
[2022-05-14] MEDS: SODIUM CHLORIDE 0.9% 1,000 ML IV SCH (03:48)
[2022-05-14] MEDS: GABAPENTIN 400 MG CAP PO SCH (06:00)
[2022-05-14 06:28] LABS: Basophils # (auto) 0.1 10 ^3/uL (0-0.2); Basophils % (auto) 1.3 % (0.0-2.0); Eosinophils # (auto) 0.2 10 ^3/uL (0-0.8); Eosinophils % (auto) 2.9 % (0.0-7.0); Hematocrit 30.2 % (36.0-46.0); Lymphocytes # (auto) 1.3 10 ^3/uL (0.4-5.4); Lymphocytes % (auto) 22.5 % (10.0-50.0); Mean Corpuscular Hgb Conc. 33.1 g/dL (32.0-36.0); Mean Corpuscular Volume 81.5 fL (80.0-100.0); Monocytes # (auto) 0.6 10 ^3/uL (0-1.3); Monocytes % (auto) 9.7 % (0.0-12.0); Neutrophils # (auto) 3.7 10 ^3/uL (1.6-8.6); Neutrophils % (auto) 63.6 % (37.0-80.0); Nucleated Red Blood Cells % 0.1 %; Red Blood Cells 3.71 10^6/uL (4.0-5.20); Red Cell Distribution Width 19.4 % (11.8-14.3); White Blood Cell 5.8 10^3/uL (4.4-10.8)
[2022-05-14 06:40] LABS: Potassium 4.5 mmol/L (3.5-5.1)
[2022-05-14] MEDS: LEVOTHYROXINE SODIUM 50 MCG TAB PO SCH (06:44)
[2022-05-14 06:57] LABS: Albumin 3.2 g/dL (3.4-5.0); BUN/Creatinine Ratio 12.4; Bilirubin, Total 0.4 mg/dL (0.2-1.0); Calcium 9.2 mg/dL (8.5-10.1); Total Protein 6.1 g/dL (6.4-8.2)
[2022-05-14] MEDS: ASPirin-EC 81 mg tab PO SCH (09:10)
[2022-05-14] MEDS: PANTOPRAZOLE 40 MG/10 ML VIAL INJ IV SCH (09:10)
[2022-05-14] MEDS: dilTIAZem HCL 180MG ER CAP PO SCH (09:11)
[2022-05-14] MEDS: MAGNESIUM OXIDE 400 MG TAB PO SCH ×2 (09:12→22:18)
[2022-05-14] MEDS: CARVEDILOL 3.125 MG TAB PO SCH ×2 (09:12→22:17)
[2022-05-14] MEDS: ISOSORBIDE MONONITRATE ER 60 MG TAB PO SCH ×2 (09:12→22:17)
[2022-05-14] MEDS: TICAGRELOR 90 MG TAB PO SCH ×2 (09:14→22:16)
[2022-05-14] MEDS: RANOLAZINE 1000 MG PO SCH ×2 (09:26→22:16)
[2022-05-14] MEDS ORDERED: LISINOPRIL 20 MG TAB PO SCH (10:00)
[2022-05-14] MEDS ORDERED: PHENYTOIN SODIUM 100 MG CAP PO SCH (10:00)
[2022-05-14] MEDS ORDERED: PATIENTS OWN MEDICATION (Atorvastatin Calcium 80 MG) PO SCH (10:00)
[2022-05-14 14:04] VITALS: BP 142/97
[2022-05-14] MEDS: MORPHINE SULFATE INJ 2 MG/ml SYRG IV PRN (15:34)
[2022-05-15] MEDS ORDERED: TEMAZEPAM 15 MG CAP PO ONE (01:15)
[2022-05-15] MEDS: LEVOTHYROXINE SODIUM 50 MCG TAB PO SCH (07:00)
[2022-05-15 07:12] LABS: BUN/Creatinine Ratio 16.5; Calcium 9.7 mg/dL (8.5-10.1); Potassium 4.1 mmol/L (3.5-5.1)
[2022-05-15 07:18] LABS: Basophils # (auto) 0.1 10 ^3/uL (0-0.2); Basophils % (auto) 1.1 % (0.0-2.0); Eosinophils # (auto) 0.2 10 ^3/uL (0-0.8); Hematocrit 32.2 % (36.0-46.0); Hemoglobin 10.7 g/dL (12.2-16.2); Lymphocytes # (auto) 1.4 10 ^3/uL (0.4-5.4); Lymphocytes % (auto) 25.1 % (10.0-50.0); Mean Corpuscular Hemoglobin 27.3 pg (28.0-32.0); Mean Corpuscular Hgb Conc. 33.3 g/dL (32.0-36.0); Monocytes # (auto) 0.6 10 ^3/uL (0-1.3); Monocytes % (auto) 9.9 % (0.0-12.0); Neutrophils # (auto) 3.4 10 ^3/uL (1.6-8.6); Neutrophils % (auto) 60.9 % (37.0-80.0); Nucleated Red Blood Cells % 0.1 %; Red Blood Cells 3.92 10^6/uL (4.0-5.20); Red Cell Distribution Width 19.2 % (11.8-14.3); White Blood Cell 5.6 10^3/uL (4.4-10.8)
[2022-05-15] MEDS: PANTOPRAZOLE 40 MG/10 ML VIAL INJ IV SCH (08:55)
[2022-05-15] MEDS: TICAGRELOR 90 MG TAB PO SCH (08:55)
[2022-05-15] MEDS: ASPirin-EC 81 mg tab PO SCH (08:56)
[2022-05-15] MEDS: ISOSORBIDE MONONITRATE ER 60 MG TAB PO SCH (08:57)
[2022-05-15] MEDS: CARVEDILOL 3.125 MG TAB PO SCH (08:58)
[2022-05-15] MEDS: MAGNESIUM OXIDE 400 MG TAB PO SCH (08:59)
[2022-05-15 09:00] VITALS: BP 141/58
[2022-05-15] MEDS: MORPHINE SULFATE INJ 2 MG/ml SYRG IV PRN (09:00)
[2022-05-15] MEDS: dilTIAZem HCL 180MG ER CAP PO SCH (09:50)
[2022-05-15] MEDS ORDERED: ATORVASTATIN 20 MG TAB PO SCH (10:00)
[2022-05-15] MEDS ORDERED: NITROGLYCERIN 0.2MG/HR TOPICAL PATCH TD SCH (10:00)
[2022-05-15] MEDS ORDERED: hydrALAZINE HCL 20 MG/ML VL IV PRN (10:00)
[2022-05-15] MEDS ORDERED: PHENYTOIN 100 MG/4 ML SUSP PO SCH (10:00)
[2022-05-15] MEDS ORDERED: RANOLAZINE ER 500 MG TAB PO SCH (10:00)
[2022-05-15] MEDS ORDERED: RANOLAZINE 1000 MG PO SCH (10:00)
[2022-05-15] MEDS ORDERED: PATIENTS OWN MEDICATION (Atorvastatin Calcium 80 MG) PO SCH (10:00)
[2022-05-15] MEDS ORDERED: FUROSEMIDE 20 MG/2 ML VIAL IV ONE ×2 (12:00)
[2022-05-15 13:00] VITALS: BP 132/84
[2022-05-15] MEDS: HYDROcodone-ACET 5/325MG TAB PO PRN ×2 (15:29→19:43)
[2022-05-15 17:14] VITALS: BP 116/62
== END 2022-05-15 20:40 | disposition short-term general hospital (02) | DRG 311 ==
LOC: ER 04:10 → EDBD 04:10 → TELE 13:27 → TELE-E-ADS 05-14 14:17 → TELE-EAST 05-14 19:40
PROVIDERS: ADMIT Nurse Practitioner Family; ATTEND Internal Medicine
DX: I24.9 Acute ischemic heart disease, unspecified (principal); I50.43 Acute on chronic combined systolic (congestive) and diastolic (congestive) heart failure; I13.0 Hypertensive heart and chronic kidney disease with heart failure and stage 1 through stage 4 chronic kidney disease, or unspecified chronic kidney disease; N17.9 Acute kidney failure, unspecified; I16.0 Hypertensive urgency; E78.5 Hyperlipidemia, unspecified; D64.9 Anemia, unspecified; Z20.822 Contact with and (suspected) exposure to COVID-19; I73.9 Peripheral vascular disease, unspecified; I25.5 Ischemic cardiomyopathy; F17.210 Nicotine dependence, cigarettes, uncomplicated; F41.9 Anxiety disorder, unspecified; I25.110 Atherosclerotic heart disease of native coronary artery with unstable angina pectoris; N18.30 Chronic kidney disease, stage 3 unspecified; Z88.0 Allergy status to penicillin; Z88.8 Allergy status to other drugs, medicaments and biological substances; Z95.1 Presence of aortocoronary bypass graft; Z88.6 Allergy status to analgesic agent; Z83.3 Family history of diabetes mellitus; Z82.49 Family history of ischemic heart disease and other diseases of the circulatory system; Z80.9 Family history of malignant neoplasm, unspecified
CPT/HCPCS: 36415; 71045; 71275; 80048; 80053; 80185; 81003; 84484; 85025; 85379; 87426; 93005; 96374; 96375; C9113; G0378; J2405

== ENCOUNTER 2022-10-12 00:22 | Inpatient (IN) | payer OTHER, MEDICARE ==
[~2022-10-12] VITALS: Ht 167.6 cm; Wt 59.1 kg
[~2022-10-12 00:22] MED LIST changes: +GABA-1251 PO; -GABA400C11 PO; -LISI40TA11 PO; +LISI40TA16 PO; -PHE100C PO; +PHEN1CAP60 PO
[2022-10-12 00:45] LABS: Basophils # (auto) 0.1 10 ^3/uL (0-0.2); Eosinophils # (auto) 0.1 10 ^3/uL (0-0.8); Hemoglobin 10.2 g/dL (12.2-16.2); Lymphocytes # (auto) 1.6 10 ^3/uL (0.4-5.4)
[2022-10-12] MEDS ORDERED: NITROGLYCERIN 0.4 MG SL TAB SL ONE (00:45)
[2022-10-12 00:47] LABS: Basophils % (auto) 1.4 % (0.0-2.0); Hematocrit 33.3 % (36.0-46.0); Lymphocytes % (auto) 23.8 % (10.0-50.0); Mean Corpuscular Hemoglobin 21.5 pg (28.0-32.0); Mean Corpuscular Hgb Conc. 30.7 g/dL (32.0-36.0); Mean Corpuscular Volume 69.8 fL (80.0-100.0); Monocytes # (auto) 0.6 10 ^3/uL (0-1.3); Monocytes % (auto) 9.3 % (0.0-12.0); Neutrophils # (auto) 4.3 10 ^3/uL (1.6-8.6); Neutrophils % (auto) 64.5 % (37.0-80.0); Nucleated Red Blood Cells % 0.1 %; Red Blood Cells 4.77 10^6/uL (4.0-5.20); White Blood Cell 6.6 10^3/uL (4.4-10.8)
[2022-10-12 01:05] LABS: Partial Thromboplastin Time 27.5 SEC (24.5-34.5)
[2022-10-12 01:06] LABS: Albumin 3.5 g/dL (3.4-5.0); BUN/Creatinine Ratio 7.2 (10.0-20.0); Calcium 9.2 mg/dL (8.5-10.1); Potassium 3.6 mmol/L (3.5-5.1)
[2022-10-12 01:15] LABS: Bilirubin, Total 0.3 mg/dL (0.2-1.0)
[2022-10-12 01:25] VITALS: PULSE 87; RESP 13; O2SAT 99
[2022-10-12 01:28] LABS: Urine Bacteria FEW /hpf (None Seen); Urine Blood Negative /uL (Negative); Urine Specific Gravity 1.003 (1.001-1.035); Urine WBC 1 /hpf (0 - 5)
[2022-10-12] MEDS ORDERED: MORPHINE SULFATE INJ 2 MG/ml SYRG IV ONE ×2 (01:30→21:15)
[2022-10-12] MEDS ORDERED: ONDANSETRON HCL 4 MG/2 ML VIAL IV ONE ×3 (01:30→21:15)
[2022-10-12] MEDS ORDERED: LORazepam 2MG/ML-1ML VIAL IV ONE (01:45)
[2022-10-12] MEDS ORDERED: HYDROmorphone HCL 2 MG/ML VL/or syr IV ONE (03:00)
[2022-10-12] MEDS ORDERED: MORPHINE SULFATE INJ 2 MG/ml SYRG IV PRN ×2 (05:30)
[2022-10-12] MEDS ORDERED: HYDROcodone-ACET 5/325MG TAB PO PRN (05:30)
[2022-10-12] MEDS ORDERED: ONDANSETRON HCL 4 MG/2 ML VIAL IV PRN (05:30)
[2022-10-12] MEDS ORDERED: ACETAMINOPHEN 325 MG TAB PO PRN (05:30)
[2022-10-12] MEDS ORDERED: DOCUSATE SOD 100 MG CAP PO PRN (05:30)
[2022-10-12] MEDS ORDERED: LORazepam 2MG/ML-1ML VIAL IV PRN (05:30)
[2022-10-12] MEDS ORDERED: NITROGLYCERIN 0.4 MG SL TAB SL PRN (05:30)
[2022-10-12] MEDS ORDERED: hydrALAZINE HCL 20 MG/ML VL IV PRN (06:00)
[2022-10-12] MEDS: SODIUM CHLOR 0.9% PF (SALINE LOCK) 10ML VIAL/SYR IV SCH ×2 (06:33→14:39)
[2022-10-12 06:41] LABS: Basophils # (auto) 0.1 10 ^3/uL (0-0.2); Basophils % (auto) 1.4 % (0.0-2.0); Eosinophils # (auto) 0.1 10 ^3/uL (0-0.8); Hematocrit 32.1 % (36.0-46.0); Hemoglobin 9.8 g/dL (12.2-16.2); Lymphocytes # (auto) 2.2 10 ^3/uL (0.4-5.4); Mean Corpuscular Hemoglobin 21.6 pg (28.0-32.0); Mean Corpuscular Hgb Conc. 30.4 g/dL (32.0-36.0); Monocytes # (auto) 0.5 10 ^3/uL (0-1.3); Monocytes % (auto) 8.2 % (0.0-12.0); Neutrophils # (auto) 3.5 10 ^3/uL (1.6-8.6); Neutrophils % (auto) 54.4 % (37.0-80.0); Nucleated Red Blood Cells % 0.1 %; Red Blood Cells 4.52 10^6/uL (4.0-5.20); Red Cell Distribution Width 18.8 % (11.8-14.3); White Blood Cell 6.4 10^3/uL (4.4-10.8)
[2022-10-12 06:54] LABS: Albumin 3.3 g/dL (3.4-5.0); Calcium 9.3 mg/dL (8.5-10.1); Potassium 3.8 mmol/L (3.5-5.1)
[2022-10-12 06:58] LABS: BUN/Creatinine Ratio 7.3 (10.0-20.0); Bilirubin, Total 0.4 mg/dL (0.2-1.0); Total Protein 6.8 g/dL (6.4-8.2)
[2022-10-12] MEDS ORDERED: LEVOTHYROXINE SODIUM 50 MCG TAB PO SCH (07:00)
[2022-10-12 08:00] VITALS: PULSE 79; RESP 15; O2SAT 96
[2022-10-12] MEDS ORDERED: FUROSEMIDE 40 MG/4 ML VIAL IV SCH (10:00)
[2022-10-12] MEDS ORDERED: FUROSEMIDE 20 MG/2 ML VIAL IV SCH (10:00)
[2022-10-12] MEDS ORDERED: ISOSORBIDE MONONITRATE ER 60 MG TAB PO SCH (10:00)
[2022-10-12] MEDS ORDERED: CLOPIDOGREL BISULFATE 75 MG TAB PO SCH (10:00)
[2022-10-12] MEDS ORDERED: RANOLAZINE ER 500 MG TAB PO SCH (10:00)
[2022-10-12] MEDS ORDERED: NITROGLYCERIN 0.2MG/HR TOPICAL PATCH TD SCH (10:00)
[2022-10-12] MEDS ORDERED: CARVEDILOL 3.125 MG TAB PO SCH (10:00)
[2022-10-12] MEDS ORDERED: FAMOTIDINE (10MG/ML) 2ML VL IV SCH (10:00)
[2022-10-12] MEDS ORDERED: ASPirin 81 mg TAB PO SCH (10:00)
[2022-10-12 10:24] LABS: Free T4 (Free Thyroxine) 0.86 ng/dL (0.89-1.76); T3 Total 0.68 ng/mL (0.60-1.81)
[2022-10-12 19:35] VITALS: PULSE 97; RESP 19; O2SAT 97
[2022-10-12 20:51] VITALS: TEMP 98.4; O2SAT 97
[2022-10-12 21:15] VITALS: BP 156/102; PULSE 99; RESP 18
[2022-10-12] MEDS ORDERED: MORPHINE SULFATE 4 MG/ML SYR/VIAL IV ONE (21:15)
[2022-10-12] MEDS ORDERED: LACTULOSE 20Gm/30ML SOLN PO SCH (22:00)
[2022-10-12] MEDS ORDERED: ATORVASTATIN 20 MG TAB PO SCH (22:00)
== END 2022-10-12 21:18 | disposition short-term general hospital (02) | DRG 311 ==
LOC: EDBD 00:22 → ER 00:22 → TELE 05:40
PROVIDERS: ADMIT Nurse Practitioner Acute Care; ATTEND Nurse Practitioner Acute Care
DX: I24.9 Acute ischemic heart disease, unspecified (principal); I50.43 Acute on chronic combined systolic (congestive) and diastolic (congestive) heart failure; N17.0 Acute kidney failure with tubular necrosis; I13.0 Hypertensive heart and chronic kidney disease with heart failure and stage 1 through stage 4 chronic kidney disease, or unspecified chronic kidney disease; R07.89 Other chest pain; I25.10 Atherosclerotic heart disease of native coronary artery without angina pectoris; F41.9 Anxiety disorder, unspecified; I25.5 Ischemic cardiomyopathy; N18.30 Chronic kidney disease, stage 3 unspecified; F17.210 Nicotine dependence, cigarettes, uncomplicated; D63.8 Anemia in other chronic diseases classified elsewhere; E78.5 Hyperlipidemia, unspecified; I73.9 Peripheral vascular disease, unspecified; Z95.1 Presence of aortocoronary bypass graft; Z91.199 Patient's noncompliance with other medical treatment and regimen due to unspecified reason; Z95.5 Presence of coronary angioplasty implant and graft; Z88.6 Allergy status to analgesic agent; Z88.0 Allergy status to penicillin; Z83.3 Family history of diabetes mellitus; Z80.9 Family history of malignant neoplasm, unspecified; Z82.49 Family history of ischemic heart disease and other diseases of the circulatory system; I25.2 Old myocardial infarction; Z76.5 Malingerer [conscious simulation]
CPT/HCPCS: 36415; 71045; 80053; 81001; 83735; 83880; 84439; 84443; 84480; 84484; 85025; 85610; 85730; 93005; 93306; G0378; J2405; J3490

== ENCOUNTER 2023-09-22 03:12 | Emergency (ER) | payer OTHER, MEDICARE ==
[~2023-09-22] VITALS: Ht 154.9 cm; Wt 49.2 kg
[~2023-09-22 03:12] MED LIST changes: -CARV6.25 PO; +CARV6.2517 PO
[2023-09-22 03:43] LABS: Mean Corpuscular Hgb Conc. 30.5 g/dL (32.0-36.0); Monocytes # (auto) 0.8 10 ^3/uL (0-1.3)
[2023-09-22 03:45] LABS: Basophils # (auto) 0 10 ^3/uL (0-0.2); Basophils % (auto) 0.7 % (0.0-2.0); Eosinophils # (auto) 0.1 10 ^3/uL (0-0.8); Eosinophils % (auto) 1.9 % (0.0-7.0); Hematocrit 36.1 % (36.0-46.0); Lymphocytes # (auto) 1.1 10 ^3/uL (0.4-5.4); Mean Corpuscular Hemoglobin 20.5 pg (28.0-32.0); Mean Corpuscular Volume 67.3 fL (80.0-100.0); Monocytes % (auto) 12.4 % (0.0-12.0); Neutrophils # (auto) 4.6 10 ^3/uL (1.6-8.6); Red Blood Cells 5.36 10^6/uL (4.0-5.20); Red Cell Distribution Width 19.6 % (11.8-14.3); White Blood Cell 6.7 10^3/uL (4.4-10.8)
[2023-09-22 03:46] LABS: Urine Bacteria None Seen /hpf (None Seen)
[2023-09-22 04:00] LABS: Alanine Aminotransferase 15 U/L (7-40); Albumin 4.1 g/dL (3.2-4.8); Alkaline Phosphatase 128 U/L (46-116); Anion Gap 5 (5-15); Aspartate Aminotransferase 20 U/L (13-40); BUN/Creatinine Ratio 12.4 (10.0-20.0); Blood Urea Nitrogen 22 mg/dL (9-23); Calcium 10.6 mg/dL (8.7-10.4); Carbon Dioxide 25 mmol/L (20-30); Chloride 111 mmol/L (98-107); Glucose 94 mg/dL (74-106); Potassium 4.7 mmol/L (3.5-5.1); Sodium 141 mmol/L (136-145)
[2023-09-22 04:01] LABS: Bilirubin, Total 0.7 mg/dL (0.2-1.0); Total Protein 6.9 g/dL (5.7-8.2)
[2023-09-22 04:43] LABS: Urine Blood Negative /uL (Negative); Urine Clarity Clear (Clear); Urine Color Colorless (Yellow); Urine Protein, UAD Negative (Negative); Urine Specific Gravity 1.005 (1.001-1.035); Urine Urobilinogen Normal (Negative); Urine WBC 1 /hpf (0 - 5); Urine pH 6.5 (5.0-9.0)
[2023-09-22] MEDS: cloNIDine HCL 0.1 MG TAB PO ONE (06:13)
[2023-09-22 07:32] VITALS: PULSE 89; RESP 12; O2SAT 99
[2023-09-22 08:47] LABS: Hypochromia Moderate; Platelet Estimate Adequate
[2023-09-22] MEDS: HYDROcodone-ACET 5/325MG TAB PO ONE (08:47)
[2023-09-22 09:35] VITALS: BP 151/98; PULSE 92; RESP 16; TEMP 98; O2SAT 100
== END 2023-09-22 09:49 | disposition short-term general hospital (02) ==
LOC: ER 03:12
DX: I50.9 Heart failure, unspecified (principal); R07.89 Other chest pain; I13.0 Hypertensive heart and chronic kidney disease with heart failure and stage 1 through stage 4 chronic kidney disease, or unspecified chronic kidney disease; N18.9 Chronic kidney disease, unspecified; E78.5 Hyperlipidemia, unspecified; E03.9 Hypothyroidism, unspecified; Z98.890 Other specified postprocedural states; Z88.6 Allergy status to analgesic agent; Z88.0 Allergy status to penicillin; Z88.8 Allergy status to other drugs, medicaments and biological substances; Z79.84 Long term (current) use of oral hypoglycemic drugs; Z79.82 Long term (current) use of aspirin; Z79.899 Other long term (current) drug therapy
CPT/HCPCS: 36415; 71045; 80053; 81001; 84484; 85025; 93005

== ENCOUNTER 2024-04-28 15:25 | Emergency (ER) | payer MEDICARE, OTHER ==
[~2024-04-28] VITALS: Ht 165.1 cm; Wt 67.3 kg
[~2024-04-28 15:25] MED LIST changes: -LEV50T PO; +LEVO-848 PO; +PHEN1CAP38 PO; -PHEN1CAP60 PO
--- NOTE | 2024-04-28 16:01 | DVH ---
EXAM: CT HEAD WITHOUT CONTRAST HISTORY: CHILDERS COMPARISON: None TECHNIQUE: Axial images of the head were obtained and reformatted in coronal and sagittal planes. All CT scans at this medical facility are performed using dose modulation techniques as appropriate t o a performed exam including the following: Automated exposure control was utilized; adjustment of th e MA and/or KV according to patient size; and use of iterative reconstruction technique. CT Dose: CTDI volume is 55 mGy. Dose-length product is 987 mGy*cm FINDINGS: There is no evidence of acute intracranial hemorrhage, mass, mass effect midline shift. There is no h ydrocephalus or extra-axial fluid collection. There are mild patchy hypodense areas in the supratent orial white matter which May relate to chronic small-vessel ischemic changes. Beverly-white matter diffe rentiation is maintained. The visualized paranasal sinuses and mastoid air cells are clear. The calvarium is intact. IMPRESSION: 1. No acute intracranial process. HS:Y
--- NOTE | 2024-04-28 16:05 | ED.PDOC ---
HPI (NEURO) HPI Comments 58 year old female LENORE presents to the ED with chief complaint of headache. Patient reports that she had started to experience a sudden onset, 9/10 headache about 3 hours ago. Patient relays that she has a history of migraines and this headache feels like previous migraines. EMS states patient was able to ambulate onto the bed before coming to the ED. Patient denies any chest pain, SOB, fever, chills, dizziness, N/V, numbness, or weakness. Chief Complaint: Headache Time Seen by MD: 16:00 Primary Care Provider: PT DOES NOT KNOW Reviewed Notes: Nurses Notes, Seismograph Observer Notes, Medications, Allergies Information Source: Patient, Emergency Med Personnel Mode of Arrival: EMS Severity: Moderate Headache Severity: Moderate, Like previous Headaches Timing: Hours Duration: Since onset Prehospital treatment: None Headache Quality: Aching Headache Location: Generalized Onset: At rest Circumstances: Spontaneous Before: Normal During: Awake After: Headache History of: None Associated Signs and Symptoms: Headache Past Medical History PAST MEDICAL HISTORY: CAD, CHF, CKF, High Lipids, HTN, MS, Thyroid Past Medical History (Other): Migraines Surgical History: BTL, CABG, PTCA BILLET ASSEMBLER History: No Pertinent BILLET ASSEMBLER History Family History Family History: Family hx of DM, Family hx of Cancer, Family hx of heart conner Social History Smoker: Non-Smoker Alcohol: Denies ETOH Use Drugs: Denies Drug Use Lives In: Home Constitutional: denies: chills, diaphoresis, fatigue, fever, malaise, sweats, weakness, others EENTM: denies: blurred vision, double vision, ear bleeding, ear discharge, ear drainage, ear pain, ear ringing, eye pain, eye redness, hearing loss, mouth pain, mouth swelling, nasal discharge, nose bleeding, nose congestion, nose pain, photophobia, tearing, throat pain, throat swelling, voice changes, others Respiratory: denies: cough, hemoptysis, orthopnea, SOB at rest, shortness of breath, SOB with excertion, stridor, wheezing, others Cardiovascular: denies: chest pain, dizzy spells, diaphoresis, Dyspnea on exertion, edema, irregular heart beat, left arm pain, lightheadedness, palpitations, PND, syncope, others Gastrointestinal: denies: abdomen distended, abdominal pain, blood streaked bowels, constipated, diarrhea, dysphagia, difficulty swallowing, hematemesis, melena, nausea, poor appetite, poor fluid intake, rectal bleeding, rectal pain, vomiting, others Genitourinary: denies: abnormal vagina bleeding, burning, dyspareunia, dysuria, flank pain, frequency, hematuria, incontinence, pain, , vagina discharge, urgency, others Neurological: reports: headache; denies: dizziness, fainting, left sided numbness, left sided weakness, numbness, paresthesia, pre-existing deficit, right sided numbness, right sided weakness, seizure, speech problems, tingling, tremors, weakness, others Musculoskeletal: denies: back pain, gout, joint pain, joint swelling, muscle pain, muscle stiffness, neck pain, others Integumetry: denies: bruises, change in color, change in hair/nails, dryness, laceration, lesions, lumps, rash, wounds, others Allergic/Immunocompromised: denies: Difficulty Healing, Frequent Infections, Hives, Itching, others Hematologic/Lymphatic: denies: anemia, blood clots, easy bleeding, easy bru ising, swollen glands, others Endocrine: denies: excessive hunger, excessive sweating, excessive thirst, e xcessive urination, flushing, intolerance to cold, intolerance to heat, unexplained weight gain, unexplained weight loss, others Psychiatric: denies: anxiety, bipolar disorder, depression, hopeless, panic disorder, schizophrenia, sleepless, suicidal, others All Other Systems: Reviewed and Negative Physical Exam General Appearance: Moderate Distress, Normal HEENT: Normal ENT Inspection, PERRL/EOMI Neck: Full Range of Motion, Non-Tender, Normal, Normal Inspection Respiratory: Chest Non-Tender, Lungs Clear, No Accessory Muscle Use, No Respiratory Distress, Normal Breath Sounds Cardiovascular: No Edema, No JVD, No Murmur, No Gallop, Normal Peripheral Pulses, Regular Rate/Rhythm Breast Exam: Deferred Gastrointestinal: No Organomegaly, Non Tender, No Pulsatile Mass, Normal Bowel Sounds, Soft Genitalia: Deferred Pelvic: Deferred Rectal: Deferred Extremities: No calf tenderness, Normal capillary refill, Normal inspection, Normal range of motion, Non-tender, No pedal edema Musculoskeletal : Apperance: Normal Neurologic: Alert, serging machine operator automatic II-XII nml as Tested, No Motor Deficits, Normal Affect, Normal Mood, No Sensory Deficits, Other (No pronator drift, moves all extremities equally) Cerebellar Function: Normal Reflexes: Normal Skin: Dry, Normal Color, Warm Lymphatic: No Adenopathy Was a procedure done? Was a procedure done?: No X-Ray, Labs, Meds, VS Vital Signs Date Time Temp Pulse Resp B/P (MAP) Pulse Ox O2 Delivery O2 Flow Rate FiO2 04/28/24 15:42 99.4 80 20 173/113 (133) 98 X-Ray, Labs, Meds, VS Comment Imaging: X-rays and CT scans were reviewed and interpreted by this provider, imaging shows no fractures and no pathological disease. Pending radiology review. Laboratory: Labs reviewed and interpreted by this provider. No significant abnormalities noted. Patient has prior medical visits reviewed. Med reconciliation performed Vital signs reviewed Time of 1ST Reevaluation: 17:00 Reevaluation 1ST: Improved Patient Education/Counseling: Diagnosis, Treatment, Need For Follow Up (Patient advised to follow-up in the emergency room in the next 24 to 48 hours if symptoms do not improve. Advised follow-up with PCP in the next 3 to 5 days. Patient verbalized understanding. ) Family Education/Counseling: No Family Present Departure 1 Departure Time of Disposition: 17:39 Impression: Primary Impression: Migraine Qualified Codes: G43.101 - Migraine with aura, not intractable, with status migrainosus Disposition: 01 HOME / SELF CARE / HOMELESS Condition: Fair Discharged With: Self Critical Care Note Critical Care Time?: No Stability Stability form required: No Heart Score Heart Score: Heart Score Response (Comments) Value History N/A 0 EKG N/A 0 Age N/A 0 Risk Factors N/A 0 Troponin N/A 0 Total 0 I personally scribed for GEOVANNI GAINES ([email or web address]) on 04/28/24 at 16:05. Electronically submitted by Foster Hidalgo ([email or web address]). GEOVANNI GAINES Apr 28, 2024 16:05
[2024-04-28] MEDS: PROCHLORPERAZINE EDISYLATE 5 MG/ML 2ML VIAL IM ONE (18:16)
[2024-04-28] MEDS: MORPHINE SULFATE 4 MG/ML SYR/VIAL IM ONE (18:16)
[2024-04-28 18:33] VITALS: BP 146/79; PULSE 80; RESP 17; TEMP 98.9; O2SAT 98
== END 2024-04-28 18:34 | disposition home or self-care (01) ==
LOC: ER 15:25 → EDBD 15:25 → ER 18:34
DX: G43.909 Migraine, unspecified, not intractable, without status migrainosus (principal); I11.0 Hypertensive heart disease with heart failure; I50.9 Heart failure, unspecified; I25.10 Atherosclerotic heart disease of native coronary artery without angina pectoris; E78.5 Hyperlipidemia, unspecified; E03.9 Hypothyroidism, unspecified; Z95.1 Presence of aortocoronary bypass graft; Z98.51 Tubal ligation status; Z98.890 Other specified postprocedural states
CPT/HCPCS: 70450; 96372; 99285; J0780; J2270

== ENCOUNTER 2025-02-23 05:45 | Emergency (ER) | payer MEDICARE, OTHER ==
[~2025-02-23] VITALS: Ht 157.5 cm; Wt 53.1 kg
[2025-02-23 06:00] VITALS: RESP 16; O2SAT 97
--- NOTE | 2025-02-23 06:07 | ED.PDOC ---
HPI Comments HPI: Poor Historian. 59-year-old female accompanied by her has been at bedside. Patient is brought in by ambulance for evaluation of left-sided chest pain nonspecific that started approximately an hour ago. Patient appears a little bit altered but able to make eye contact. Patient appears weak. states that the patient is compliant with all her medications. Past Medical History: Hypertension, hyperlipidemia, Past Surgical History: Pacemaker Patient is on Eliquis and Plavix REVIEW OF SYSTEMS: CONSTITUTIONAL: Denies acute: fever, diaphoresis, chills, HEAD: Denies acute: headache, photophobia Eyes: Denies acute: Double vision, vision loss, eye pain, eye discharge. EARS: Denies acute: tinnitus, hearing loss, ear discharge, ear pain, THROAT: Denies acute: sore throat, swelling, difficulty swallowing , pain with swallowing, change in voice. NECK: Denies acute: neck pain, neck swelling, stiff neck. HEART: Denies acute : palpitations, LUNGS: Denies acute: SOB, wheezing, cough, hemoptysis ABDOMEN: Denies acute: abdominal pain, Nausea, Vomiting, diarrhea, melena , hematemesis, hematochezia SKIN: Denies acute: rash, redness, lesions, itchiness. EXTREMITIES: Denies acute: calf pain, numbness, tingling, weakness, denies pain in extremity. Denies acute: Low back pain. Neuro: Denies acute: focal neurological deficit, motor or sensory focal neurological deficit, tremors, seizure like activity, , loss of bowel or bladder function, cauda equina like symptoms. : Denies acute: dysuria, hematuria, flank pain, increase in urinary frequency. PSYCH: Denies acute: hallucination, suicidal ideation, homicidal ideation. FEMALE: Denies acute: abnormal vaginal bleeding, foul odor, unusual discharge. PHYSICAL EXAM: General: ----moderate----acute distress, awake and alert. Head: normocephalic, atraumatic. No raccoon's eyes, no jordan sign. Neck: supple, trachea is midline, no swelling. Throat: Normal phonation. Eyes:, no erythema, no purulent discharge, no proptosis, no icterus. Heart: regular rate, regular rhythm, no significant murmur appreciated. Lungs: no apparent respiratory distress, No wheezing, no rhonchi, no crackles. No stridors Clear to auscultation bilaterally. Abdomen: non tender to palpation, non distended, soft, no guarding, no rebound, + bowel sounds. Neuro: Awake, Alert, oriented to name, self, situation, follows commands GCS=15. Speech is normal. Skin: no petechia, no purpura, no cyanosis, non-pale, not jaundice. Lower extremities: --no - Pitting edema no deformity, no focal swelling, no calf TTP. Makes eye contact. Face: no apparent facial droop. Ambulating in the ED independently. ED COURSE: DISCLAIMER: This medical document was created using an electronic medical record system with voice recognition software and computerized dictation system. Although this document has been carefully reviewed, there might still be some phonetic and typographical errors. Occasional wrong-word or "sound-alike" substitutions may have occurred due to the inherent limitations of voice recognition software. These areas are purely typographical due to imperfections of the software programs and do not reflect any compromise in the patient's medical care. Please read the chart carefully and recognize, using context, where these substitutions have occurred. Chief Complaint: Chest Pain Time Seen by MD: 05:56 Primary Care Provider: PT DOES NOT KNOW Reviewed Notes: Allergies Allergies: Coded Allergies: Gabapentin (Verified Allergy, Unknown, 05/14/22) Ibuprofen (Verified Allergy, Unknown, 05/05/19) Penicillins (Verified Allergy, Unknown, 05/05/19) Home Meds Active Scripts Nitroglycerin (Nitroglycerin Transdermal) 0.2 Mg/Hr Dis, 1 MG TD DAILY for 30 Days, #30 DIS 1 Refill Prov:SANDOR EASON MD 12/28/21 Levothyroxine Sodium (SYNTHROID TABLET) 50 Mcg Tb, 125 MCG PO QAM for 30 Days, #75 TAB 2 Refills Prov:SANDOR EASON MD 12/28/21 Carvedilol (Coreg) 6.25 Mg Tab, 1 TAB PO BID, #60 TAB Prov:NAJMA LOPEZ MD 06/20/21 Hydrocodone-Acetaminophen (Hydrocodone Bitartrate/AC 5-325 mg) 1 Tab Tab, 1 TAB PO Q8HP PRN for 7 Days, #21 TAB 0 Refills Prov:MITCH SALAS MD 05/15/21 Alprazolam (Xanax) 0.25 Mg Tb, 1 TAB PO BIDPRN PRN for 10 Days, #20 TAB 0 Refills Prov:MITCH SALAS MD 05/15/21 Diltiazem HCl (Diltiazem Hydrochloride E) 180 Mg Cap, 180 MG PO DAILY for 30 Days, #30 CAP Prov:MITCH SALAS MD 05/15/21 Isosorbide Mononitrate (Isosorbide Mononitrate ER) 60 Mg Tab, 30 MG PO BID for 30 Days, #30 TAB 30 mg po bid Prov:MITCH SALAS MD 05/15/21 Magnesium Oxide (Mag-Ox) 400 Mg Tb, 400 MG PO BID for 30 Days, #60 TAB Prov:MITCH SALAS MD 05/15/21 Nitroglycerin (NTROSTAT SUBLINGUAL) 0.4 Mg Sl, 0.4 MG SL Q5MINP PRN, #1 BOTTLE Prov:MITCH SALAS MD 05/15/21 Ranolazine (Ranexa) 1,000 Mg Tab, 1 TAB PO BID, #60 TAB 0 Refills Prov:MITCH SALAS MD 05/15/21 Ticagrelor Base (BRILINTA) 90 Mg Tab, 90 MG PO BID for 30 Days, #60 TAB Prov:MITCH SALAS MD 05/15/21 Aspirin (Aspir-81) 81 Mg Tab, 1 TAB PO DAILY, #90 TAB 0 Refills Prov:MITCH SALAS MD 05/15/21 Reported Medications Pantoprazole Sodium Sesquihydr (Pantoprazole Sodium) 40 Mg Tab, 1 TAB PO DAILY 12/25/21 Rivaroxaban (Xarelto) 2.5 Mg Tab, 1 TAB PO BID 12/25/21 Gabapentin (Gabapentin) 400 Mg Cap, 1 CAP PO TID 12/25/21 Lisinopril (Lisinopril) 40 Mg Tab, 20 TAB PO DAILY 12/25/21 Dexamethasone (Dexamethasone) 2 Mg Tab, 2 MG PO, MG 06/17/21 Phenytoin Sodium (DILANTIN CAPSULE) 100 Mg Cp, 180 MG PO DAILY for 30 Days 06/17/21 Atorvastatin Calcium (ATORVASTATIN CALCIUM) 80 Mg Tab, 80 MG PO DAILY, TAB 06/17/21 Pantoprazole Sodium (PANTOPRAZOLE SODIUM) 40 Mg Inj, 40 MG PO DAILY, INJ 06/17/21 Levothyroxine Sodium (Levothyroxine Sodium) 150 Mcg Tab, 150 MCG PO QAM for 30 Days 05/04/19 Past Medical History PAST MEDICAL HISTORY: CAD, CHF, CKF, High Lipids, HTN, AL, Thyroid Surgical History: BTL, CABG, PTCA 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 Was a procedure done?: No CP Differential Dx Differential Diagnosis: N/A Differential Diagnosis: Other (Ddx include but not limitied to gastritis, musculoskeletal pain, radiculopathy, atypical chest pain, dissection, aneurysm, ACS, unstable angina, hiatal hernia, GERD, anxiety, costochondritis, PE, pneumothroax, neoplasm, cardiac ischemia, drug abuse, anemia.) X-Ray, Labs, Meds, VS Vital Signs Date Time Temp Pulse Resp B/P (MAP) Pulse Ox O2 Delivery O2 Flow Rate FiO2 02/23/25 10:00 73 13 179/110 (133) 95 02/23/25 08:48 74 02/23/25 08:00 72 02/23/25 08:00 Room Air* 0 21 02/23/25 08:00 98.0 74 18 188/113 (138) 95 98.0 02/23/25 07:25 74 207/112 02/23/25 07:24 75 02/23/25 07:00 76 20 211/113 (145) 95 02/23/25 06:46 78 02/23/25 06:15 75 200/103 02/23/25 06:11 97.3 78 19 200/103 99 97.3 02/23/25 06:00 97.7 73 16 191/102 (131) 97 97.7 02/23/25 06:00 16 97 Room Air* 0 21 02/23/25 05:48 74 Lab Test 02/23/25 09:48 02/23/25 09:40 02/23/25 08:19 02/23/25 07:39 Range/Units Troponin I High Sensitivity 93 *H 24 </=34 ng/L Urine Color Colorless Yellow Urine Clarity Clear Clear Urine pH 6.5 5.0-9.0 Urine Specific [place] 1.014 1.001-1.035 Urine Protein Negative Negative Urine Ketones Negative Negative Urine Blood Negative Negative /uL Urine Nitrite Negative Negative Urine Bilirubin Negative Negative Urine Urobilinogen Normal Negative mg/dL Urine Leukocyte Esterase Trace Negative /uL Urine RBC None seen 0 - 4 /hpf Urine Microscopic WBC < 1 0-5 /HPF Urine Squamous Epithelial Cells Few <5 /hpf Urine Bacteria None seen None Seen /hpf Urine Glucose Normal Normal mg/dL Urine Opiates Screen Neg NEGATIVE Urine Fentanyl Screen Neg NEGATIVE Urine Barbiturates Screen Neg NEGATIVE Urine Phencyclidine Screen Neg NEGATIVE Urine Amphetamines Screen Neg NEGATIVE Urine Benzodiazepines Screen Neg NEGATIVE Urine Cocaine Screen Neg NEGATIVE Urine Cannabinoids Screen Neg NEGATIVE Blood Gas Specimen Type Arterial Blood Gas Sample Site Right radial Blood Gas Patient Temperature 37.0 Arterial Blood Date Drawn [id number] Arterial Blood pH 7.425 7.350-7.450 Arterial Blood Partial Pressure CO2 29.7 L 32.0-45.0 mmHg Arterial Blood Partial Pressure O2 62.4 L 83.0-108.0 mmHg Arterial Blood HCO3 19.1 L 21.0-28.0 mmol/L Arterial Blood Oxygen Saturation 90.7 L 94.0-98.0 % Arterial Blood Base Excess -4.1 L -2.0-3.0 mmol/L Arterial Blood Oxyhemoglobin 89.0 L 94.0-98.0 % Arterial Blood Carboxyhemoglobin 1.4 0.5-1.5 % Arterial Blood Methemoglobin 0.5 0.0-1.5 % Arterial Blood Deoxyhemoglobin 9.1 H 0.0-5.0 % Oscar Test Yes Blood Gas Total Hemoglobin 13.30 12.0-16.0 g/dL Blood Gas Modality Room air FiO2 % 21.0 B-Type Natriuretic Peptide 230.12 0-100 pg/mL Test 02/23/25 06:09 Range/Units White Blood Count 5.5 4.4-10.8 10^3/uL Red Blood Count 4.92 4.0-5.20 10^6/uL Hemoglobin 11.9 L 12.2-16.2 g/dL Hematocrit 37.2 36.0-46.0 % Mean Corpuscular Volume 75.6 L 80.0-100.0 fL Mean Corpuscular Hemoglobin 24.3 L 28.0-32.0 pg Mean Corpuscular Hemoglobin Concent 32.1 32.0-36.0 g/dL Red Cell Distribution Width 24.2 H 11.8-14.3 % Platelet Count 169 140-450 10^3/uL Mean Platelet Volume 9.0 6.9-10.8 fL Neutrophils (%) (Auto) 59.0 37.0-80.0 % Lymphocytes (%) (Auto) 22.9 10.0-50.0 % Monocytes (%) (Auto) 13.9 H 0.0-12.0 % Eosinophils (%) (Auto) 3.1 0.0-7.0 % Basophils (%) (Auto) 1.1 0.0-2.0 % Neutrophils # (Auto) 3.3 1.6-8.6 10 ^3/uL Lymphocytes # (Auto) 1.3 0.4-5.4 10 ^3/uL Monocytes # (Auto) 0.8 0-1.3 10 ^3/uL Eosinophils # (Auto) 0.2 0-0.8 10 ^3/uL Basophils # (Auto) 0.1 0-0.2 10 ^3/uL Nucleated Red Blood Cells 0.1 % Sodium Level 142 136-145 mmol/L Potassium Level 4.2 3.5-5.1 mmol/L Chloride Level 109 H 98-107 mmol/L Carbon Dioxide Level 23 20-31 mmol/L Anion Gap 10 5-15 Blood Urea Nitrogen 53 H 9-23 mg/dL Creatinine 2.03 H 0.550-1.02 mg/dL Glomerular Filtration Rate Calc 28 >90 mL/min BUN/Creatinine Ratio 26.1 H 10.0-20.0 Serum Glucose 89 74-106 mg/dL Calcium Level 10.7 H 8.7-10.4 mg/dL Total Bilirubin 0.6 0.2-1.0 mg/dL Aspartate Amino Transferase (AST) 31 13-40 U/L Alanine Aminotransferase (ALT) 35 7-40 U/L Alkaline Phosphatase 108 46-116 U/L Troponin I High Sensitivity 22 </=34 ng/L Total Protein 7.1 5.7-8.2 g/dL Albumin 4.3 3.2-4.8 g/dL Current Medications Medications (Trade) Dose Ordered Sig/Tiffany Route Start Time Stop Time Status Last Admin Labetalol HCl (Labetalol HCl) 5 mg ONCE ONCE IV 02/23/25 06:15 02/23/25 06:16 DC 02/23/25 06:15 Labetalol HCl (Labetalol HCl) 20 mg ONCE ONCE IV 02/23/25 07:30 02/23/25 07:31 DC 02/23/25 07:[address] [address] Ph: [phone] DIAGNOSTIC IMAGING Diagnostic Imaging Report : [id number] Signed PATIENT: SARAN PAGAN ACCT: [id number] UNIT: [id number] : 1965 LOC: ER ROOM / BED: / AGE / SEX: 59 / F ADM STATUS: REG ER SERVICE 7 ORDERING PHYSICIAN: CHRIS RODRIGUEZ DO PROCEDURE(s): CXRP - CHEST PORTABLE REASON: CHEST PAIN ORDER NUMBER(s): [id number], ACCESSION NUMBER(s): [id number] CHEST RADIOGRAPH INDICATION: CHEST PAIN TECHNIQUE: Single frontal view of the chest was obtained COMPARISON: XR CHEST 1 VIEW on DOS: 07/26/24. FINDINGS: Lines and Tubes: AICD. Lungs: The lungs are hypoinflated with prominence of the pulmonary vasculature. No focal consolidation. Pleura: No effusion. No pneumothorax. Cardiomediastinal contours: Unremarkable. Bones: No acute osseous abnormality. IMPRESSION: 1. Hypoinflated lungs with prominence of the pulmonary vasculature. ATED BY: EVELIA ROME MD DICTATED DATE/TIME: 02/23/25725 SIGNED BY: EVELIA ROME MD SIGNED DATE/TIME: 02/23/25725 CC: [address] [address] Ph: [phone] DIAGNOSTIC IMAGING Diagnostic Imaging Report : [id number] Signed PATIENT: SARAN PAGAN ACCT: [id number] UNIT: [id number] : 1965 LOC: ER ROOM / BED: / AGE / SEX: 59 / F ADM STATUS: REG ER SERVICE ORDERING PHYSICIAN: CHRIS RODRIGUEZ DO PROCEDURE(s): HWOCT - HEAD WITHOUT CONTRAST REASON: altered, HTN ORDER NUMBER(s): [id number], ACCESSION NUMBER(s): [id number] CLINICAL INFORMATION: Altered mental status. Hypertension. TECHNIQUE: Axial imaging was obtained through the brain without contrast. Coronal and sagittal reformatted images were obtained, reviewed, and stored. Images were reviewed in brain and bone windows. All CT scans at this medical facility are performed using dose modulation techniques as appropriate to a performed exam including the following: Automated exposure control was utilized; adjustment of the MA and/or KV according to patient size; and use of iterative reconstruction technique. CTDIvol = 55.09 mGy DLP = 1607.75 mGy-cm COMPARISON: CT HEAD WITHOUT CONTRAST on DOS: 04/28/24 FINDINGS: There is no acute intracranial hemorrhage. No mass effect or midline shift. Scattered areas of hypoattenuation are seen in the periventricular and subcortical white matter, which are nonspecific but most likely sequelae of small vessel ischemic disease.The ventricles and sulci are within normal limits in size for age. Basal cisterns are patent. The calvarium is unremarkable. Paranasal sinuses and mastoid air cells are clear. IMPRESSION: No CT evidence of acute intracranial abnormality. ATED BY: DEWAYNE SADLER DO DICTATED DATE/TIME: 02/23/25708 SIGNED BY: DEWAYNE SADLER DO SIGNED DATE/TIME: 02/23/25708 CC: Time of 1ST Reevaluation: 07:29 Reevaluation 1ST: Improved Patient Education/Counseling: Diagnosis, Treatment Family Education/Counseling: Diagnosis, Treatment Comments MDM: patient presented with the above HPI.--cardiac---workup was initiated. patient was found with the above mentioned diagnosis. the following medications were ordered: please refer to order lists of meds and tests obtained by myself Dr. Rodriguez. Patient ED course and VS have been stabilized. Patient has been reassessed in the ED and remained in a stable condition. Pertinent incidental findings were discussed with the patient and/or family. Patient/family voices understanding and is agreeable with plan. Patient has been observed in the ED adequate length of time to insure improvement/stability. Escalation of care considered: Consideration of escalation to observation or admission Patient was found with a hypertensive crisis. Patient was given labetalol boluses. CT scan of the head was unremarkable. First and 2nd troponins were normal. Patient was ADMITTED to the medicine team for further evaluation and treatment of their presentation. All the reports of any imaging studies that were ordered by myself were reviewed by myself. Departure 1 Departure Time of Disposition: 06:06 Impression: Primary Impression: Chest pain Additional Impressions: Hypertensive crisis T wave inversion in EKG ST segment depression Altered mental status Disposition: ADMITTED INPATIENT Admit to: Tele Condition: Guarded Discharged With: Self, Spouse Critical Care Note Critical Care Time?: Yes (45 min-critical care time only) Critical care comment: Due to a high probability of clinically significant, life threatening deterioration, the patient required my highest level of preparedness to intervene emergently and I personally spent this critical care time directly and personally managing the patient. This critical care time included obtaining a history; examining the patient; pulse oximetry; ordering and review of studies; arranging urgent treatment with development of a management plan; evaluation of patient's response to treatment; frequent reassessment; and, discussions with other providers. This critical care time was performed to assess and manage the high probability of imminent, life-threatening deterioration that could result in multi-organ failure. It was exclusive of separately billable procedures and treating other patients and teaching time. Please see my other sections and the rest of the note for further information on patient assessment and treatment. Heart Score Heart Score: Heart Score Response (Comments) Value History Moderate Suspicious [address]-Deviation 2 Age 45-64 1 Risk Factors >3 or Hx ASHD 2 Troponin 1-2 x's Normal limit 1 Total 7 CHRIS RODRIGUEZ DO Feb 23, 2025 06:07
[2025-02-23] MEDS: LABETALOL HCL 20 MG/4 ML VL IV ONE ×3 (06:15→07:25)
[2025-02-23 06:29] LABS: Mean Corpuscular Hemoglobin 24.3 pg (28.0-32.0); Nucleated Red Blood Cells % 0.1 %
[2025-02-23 06:32] LABS: Hematocrit 37.2 % (36.0-46.0); Hemoglobin 11.9 g/dL (12.2-16.2); Mean Corpuscular Volume 75.6 fL (80.0-100.0)
[2025-02-23 06:36] LABS: Alanine Aminotransferase 35 U/L (7-40); Albumin 4.3 g/dL (3.2-4.8); Alkaline Phosphatase 108 U/L (46-116); Anion Gap 10 (5-15); BUN/Creatinine Ratio 26.1 (10.0-20.0); Bilirubin, Total 0.6 mg/dL (0.2-1.0); Carbon Dioxide 23 mmol/L (20-31); Glucose 89 mg/dL (74-106); Potassium 4.2 mmol/L (3.5-5.1); Sodium 142 mmol/L (136-145); Total Protein 7.1 g/dL (5.7-8.2)
[2025-02-23 06:37] LABS: Blood Urea Nitrogen 53 mg/dL (9-23); Calcium 10.7 mg/dL (8.7-10.4); Chloride 109 mmol/L (98-107)
--- NOTE | 2025-02-23 06:49 | ECG ---
[facility] Test Date: 2025-02-23 Test Time: 06:46:16 Pat Name: SARAN PAGAN Department: Room: Gender: F Senior Architect/Design Manager: VITOR : 1965 Requested By: CHRIS RODRIGUEZ Order Number: [id number] Reading MD: Tommy Courtney Measurements Intervals [place] Rate: 78 P: 33 AL: 159 QRS: 40 QRSD: 114 T: 212 QT: 384 QTc: 438 Interpretive Statements Sinus rhythm Borderline intraventricular conduction delay Abnormal T, consider ischemia, diffuse leads Electronically Signed On 02-25-2025 19:26:38 PST by Tommy Courtney Please click the below link to view image of tracing.
--- NOTE | 2025-02-23 07:11 | DVH ---
CLINICAL INFORMATION: Altered mental status. Hypertension. TECHNIQUE: Axial imaging was obtained through the brain without contrast. Coronal and sagittal reformatted images were obtained, reviewed, and stored. Images were reviewed in brain and bone windows. All CT scans at this medical facility are performed using dose modulation techniques as appropriate to a performed exam including the following: Automated exposure control was utilized; adjustment of the MA and/or KV according to patient size; and use of iterative reconstruction technique. CTDIvol = 55.09 mGy DLP = 1607.75 mGy-cm COMPARISON: CT HEAD WITHOUT CONTRAST on DOS: 04/28/24 FINDINGS: There is no acute intracranial hemorrhage. No mass effect or midline shift. Scattered areas of hypoattenuation are seen in the periventricular and subcortical white matter, which are nonspecific but most likely sequelae of small vessel ischemic disease.The ventricles and sulci are within normal limits in size for age. Basal cisterns are patent. The calvarium is unremarkable. Paranasal sinuses and mastoid air cells are clear. IMPRESSION: No CT evidence of acute intracranial abnormality.
--- NOTE | 2025-02-23 07:29 | DVH ---
CHEST RADIOGRAPH INDICATION: CHEST PAIN TECHNIQUE: Single frontal view of the chest was obtained COMPARISON: XR CHEST 1 VIEW on DOS: 07/26/24. FINDINGS: Lines and Tubes: AICD. Lungs: The lungs are hypoinflated with prominence of the pulmonary vasculature. No focal consolidation. Pleura: No effusion. No pneumothorax. Cardiomediastinal contours: Unremarkable. Bones: No acute osseous abnormality. IMPRESSION: 1. Hypoinflated lungs with prominence of the pulmonary vasculature.
[2025-02-23 08:00] VITALS: TEMP 98
[2025-02-23 08:27] LABS: Base Excess -4.1 mmol/L (-2.0-3.0)
--- NOTE | 2025-02-23 08:51 | ECG ---
[facility] Test Date: 2025-02-23 Test Time: 08:48:36 Pat Name: SARAN PAGAN Department: Room: Gender: F Last Dipper: TARUN : 1965 Requested By: CHRIS RODRIGUEZ Order Number: [id number] Reading MD: Tommy Courtney Measurements Intervals [place] Rate: 74 P: 56 GA: 164 QRS: 45 QRSD: 112 T: 220 QT: 394 QTc: 438 Interpretive Statements Sinus rhythm Incomplete right bundle branch block Nonspecific T abnormalities, lateral leads Electronically Signed On 02-25-2025 19:28:18 PST by Tommy Courtney Please click the below link to view image of tracing.
[2025-02-23 10:00] VITALS: BP 179/110; PULSE 73; RESP 13; O2SAT 95
[2025-02-23 10:26] LABS: Urine Protein, UAD Negative (Negative)
[2025-02-23 10:43] LABS: Amphetamine Screen, Urine Neg (NEGATIVE); Barbiturate Scree,Urine Neg (NEGATIVE); Benzodiazephine Screen, Urine Neg (NEGATIVE); Cannabinoid Screen, Urine Neg (NEGATIVE); Cocaine Screen, Urine Neg (NEGATIVE); Opiate Scree,Urine Neg (NEGATIVE); Phencyclidine Screen, Urine Neg (NEGATIVE)
--- NOTE | 2025-02-24 16:26 | ECG ---
[facility] Test Date: 2025-02-23 Test Time: 05:48:51 Pat Name: SARAN PAGAN Department: ED Room: Gender: F Sleep Lab Technologist: HERB : 1965 Requested By: CHRIS RODRIGUEZ Order Number: [id number] Reading MD: Tommy Courtney Measurements Intervals [place] Rate: 74 P: 26 WV: 165 QRS: 14 QRSD: 114 T: 165 QT: 405 QTc: 450 Interpretive Statements Sinus rhythm Incomplete right bundle branch block Probable LVH with secondary repol abnrm Electronically Signed On 02-25-2025 19:25:51 PST by Tommy Courtney Please click the below link to view image of tracing.
== END 2025-02-23 10:39 | disposition short-term general hospital (02) ==
LOC: ER 05:45
DX: I16.9 Hypertensive crisis, unspecified (principal); I45.10 Unspecified right bundle-branch block; R45.851 Suicidal ideations; I13.0 Hypertensive heart and chronic kidney disease with heart failure and stage 1 through stage 4 chronic kidney disease, or unspecified chronic kidney disease; E11.22 Type 2 diabetes mellitus with diabetic chronic kidney disease; N18.9 Chronic kidney disease, unspecified; E78.5 Hyperlipidemia, unspecified; Z79.82 Long term (current) use of aspirin; Z79.899 Other long term (current) drug therapy; Z95.0 Presence of cardiac pacemaker; Z95.1 Presence of aortocoronary bypass graft; Z98.51 Tubal ligation status; Z88.0 Allergy status to penicillin; Z88.6 Allergy status to analgesic agent; Z88.8 Allergy status to other drugs, medicaments and biological substances
CPT/HCPCS: 36415; 36600; 70450; 71045; 80053; 80307; 81001; 82805; 83880; 84484; 85025; 93005; 96374; 96376; 99291